=== PATIENT | female | born 1940 | race Caucasian/White ===

== ENCOUNTER 2018-05-29 17:35 | Inpatient (IN) ==
--- NOTE | 2018-05-29 18:03 | Emergency Department Note ---
Disposition Clinical Impression: Left leg weakness Disposition: Admitted As Inpatient Condition: Good Referrals: Heron Yepez MD [Primary Care Provider] - Forms: ED Satisfaction Letter Neuro HPI - General Chief Complaint: ED Neuro Symptoms/Deficit Stated Complaint: Left sided weakness Time Seen by Provider: 05/29/18 17:39 Source: EMS Mode of arrival: EMS Limitations: no limitations Nursing Notes Reviewed: Yes Vital Signs Reviewed: Yes - History of Present Illness HPI Narrative: 77-year-old female prior history of cerebellar hemorrhage, CAD with one stent who presents to the ER via EMS due to left lower extremity pain as well as weakness. Patient states Saturday before last that she fell out of bed. She does not have any recollection of exactly what happened. She states she noticed that she had bruising later and believe that is what happened. She lives at home alone. States during that time that she has had pain in her left leg that starts in her low back. She also reports during this time that she has had weakness that is worse than her usual. No numbness, tingling or paresthesias. No bladder incontinence. Reports her stroke symptoms were left- sided previously. She states today she came because her daughters had had enough. No other complaints. Onset of Symptoms Date: 05/20/18 Symptom Onset Unknown: No Location: left leg History of same: Yes Severity: moderate Quality: weakness Symptoms Improving: No Improves with: none Worsens with: none On Anticoagulants: No Treatments Prior to Arrival: none - Related Data Home Medications: Home Medications Medication Instructions Recorded Confirmed ALPRAZolam [Xanax 1 MG Tablet] 1 mg PO QPM PRN 05/29/18 05/29/18 Albuterol Sulfate [Ventolin Hfa] 1 puff IH Q4H PRN 05/29/18 05/29/18 Aspirin Enteric Coated [Aspirin EC] 81 mg PO QAM 05/29/18 05/29/18 Cholecalciferol (D-3) [Vitamin D] 2,000 unit PO QPM 05/29/18 05/29/18 Clopidogrel [Plavix] 75 mg PO QAM 05/29/18 05/29/18 Furosemide [Lasix] 40 mg PO QAM 05/29/18 05/29/18 Gabapentin [Neurontin] 300 mg PO QPM 05/29/18 05/29/18 Lisinopril [Zestril] 20 mg PO QPM 05/29/18 05/29/18 Metoprolol XL (24 HR) Succ [Toprol 75 mg PO QAM 05/29/18 05/29/18 XL] Rosuvastatin [Crestor] 40 mg PO QPM 05/29/18 05/29/18 Tramadol HCl [Ultram] 100 mg PO TID PRN 05/29/18 05/29/18 All systems ED: reviewed and negative except as stated. Cardiovascular: Denies: chest pain Respiratory: Denies: dyspnea Gastrointestinal: Denies: abdominal pain Musculoskeletal: Reports: neck pain Neurological: Reports: weakness. Denies: headache, numbness, paresthesias Past Medical History - Past Medical History Attestation: Yes The following information was validated with the patient. Source: patient Medical history: Reports: CVA, hypertension Psychiatric history: Reports: anxiety - Social History Smoking Status: Current every day smoker Alcohol use: Reports: none Drug use: Reports: none Physical Exam - General Limitations: no limitations General appearance: alert, in no apparent distress - Head Head exam: atraumatic, normocephalic - Eye Eye exam: Present: normal appearance - ENT ENT exam: normal exam - Neck Neck exam: Present: normal inspection, full ROM. Absent: tenderness - Chest Chest inspection: Present: normal inspection, symmetric chest wall rise - Respiratory Respiratory exam: Present: normal lung sounds bilaterally - Cardiovascular Cardiovascular exam: Present: regular rate, normal rhythm, normal heart sounds - Abdominal Exam Abdominal exam: Present: soft, Non-Tender. Absent: tenderness - Extremities Exam Extremities exam: Present: normal inspection, full ROM - Expanded Upper Extremity Exam Shoulder exam: Present: normal inspection, full ROM Arm exam: Present: normal inspection, full ROM Elbow exam: Present: normal inspection, full ROM Forearm/Wrist exam: Present: normal inspection, full ROM Hand exam: Present: normal inspection, full ROM Vascular exam: Normal: radial pulse - Expanded Lower Extremity Exam Hip/Pelvis exam: Present: normal inspection, full ROM Upper leg exam: Present: normal inspection, full ROM Knee exam: Present: normal inspection, full ROM Lower leg exam: Present: normal inspection, full ROM Ankle exam: Present: normal inspection, full ROM Foot/toe exam: Present: normal inspection, full ROM Neurovascular/Tendon exam: Absent: motor deficit, sensory deficit - Neurological Exam Neurological exam: Present: alert, oriented X3, CN II-XII intact - Expanded Neurological Exam Patient oriented to: Present: person, place, time Speech: Present: fluid speech Cranial nerves: EOM function (II, III, IV, ): Normal, facial sensation (V): Normal, spinal accessory function (XI): Normal, tongue deviation (XII): Normal Cerebellar function: finger to nose: Normal Motor strength - LUE: 5/5 Motor strength - RUE: 5/5 Motor strength - LLE: 3/5 Motor strength - RLE: 5/5 Sensory exam upper extremity: light touch: Normal Sensory exam lower extremity: light touch: Normal Coma Scale Eye Opening: Spontaneous Coma Scale Motor Response: Obeys Commands Coma Scale Verbal Response: Oriented Coma Scale Total: 15 - Skin Skin exam: Present: warm, dry Course Course Narrative: Patient seen and examined. Vital signs reviewed. She does have worsening weakness of her left lower extremity. Neurovascularly intact otherwise. Plan for CT of the head and cervical spine given her fall previously, EKG, chest x- ray, lumbar spine x-ray, labs. Likely admission for neuro workup. - Reevaluation(s) Reevaluation #1: Discussed results of imaging and lab work with the patient. Agreeable with being admitted. Vital Signs Temperature 98.3 F 05/29/18 17:38 Pulse Rate 74 05/29/18 17:38 Respiratory Rate 18 05/29/18 17:38 Blood Pressure 182/130 05/29/18 17:38 O2 Sat by Pulse Oximetry 98 05/29/18 17:38 Temperature 98.3 F 05/29/18 17:38 Pulse Rate 74 05/29/18 17:38 Respiratory Rate 18 05/29/18 17:38 Blood Pressure 182/130 05/29/18 17:38 O2 Sat by Pulse Oximetry 98 05/29/18 17:38 Oxygen Delivery Oxygen Delivery Room Air Neuro Symptoms/Deficit - MDM Narrative Medical decision making narrative: 77-year-old female with a possible fall roughly 9 days ago with weakness in her left leg from her baseline. Unable to ambulate at home given this weakness. CT head no acute abnormalities. X-ray of the lumbar spine shows degenerative changes with a grade 1 anterolisthesis. She has weakness worse than her baseline of the left leg. Plan to admit for worsening weakness, concern for CVA as well as for physical therapy rehabilitation. - Lab Data Lab results reviewed: Yes I reviewed the patient's lab results. Result diagrams: 05/29/18 18:07 05/29/18 18:07 Lab Results 05/29/18 05/29/18 05/29/18 Range/Units 18:07 18:07 18:07 WBC 9.5 (4.3-11.1) K/mcL RBC 4.81 (3.82-4.97) M/mcL Hgb 13.5 (11.5-15.4) g/dL Hct 41.2 (35.3-44.9) % MCV 85.7 (83.0-100.0) fL MCH 28.1 (28.0-33.3) pg MCHC 32.8 (31.6-35.5) g/dL RDW 13.7 (11.5-14.5) % Plt Count 394 (140-400) K/mcL MPV 10.6 (9.4-12.4) fL Immature Gran % 0.7 (0-4) % Seg Neutrophils % 56.3 % Lymphocytes % 33.2 % Monocytes % 7.3 % Eosinophils % 1.8 % Basophils % 0.7 % Neutrophils # 5.3 (1.6-8.9) K/mcL Lymphocytes # 3.2 (0.6-4.6) K/mcL Monocytes # 0.7 (0.0-1.3) K/mcL Eosinophils # 0.2 (0.0-0.6) K/mcL Basophils # 0.1 (0.0-0.2) K/mcL PT 12.0 (9.4-12.1) Seconds INR 1.1 APTT 31.9 (26.0-36.0) Seconds Sodium 138 (136-145) mEq/L Potassium 4.3 (3.5-5.1) mEq/L Chloride 103 (98-107) mEq/L Carbon Dioxide 28 (23-29) mEq/L BUN 18 (8-23) mg/dL Creatinine 1.16 (0.60-1.20) mg/dL Est GFR ( Amer) 55 L (> 60) Est GFR (Non-Af Amer) 45 L (> 60) BUN/Creatinine Ratio 16 (6-26) Glucose 107 H (70-105) mg/dL Calculated Osmolality 288 (280-300) Calcium 9.4 (8.6-10.3) mg/dL Troponin I < 0.03 (< 0.04) ng/mL - Radiology Data Radiology results reviewed: Yes I reviewed the patient's radiology results. Chest X-Ray 05/29/18 17:52 IMPRESSION: No acute cardiopulmonary disease. D/ / Ryan Husain MD / Ryan Husain MD Interpreting Provider: Ryan Husain MD Head CT 05/29/18 17:52 IMPRESSION: No acute intracranial abnormality. Stable chronic small vessel white matter ischemic changes and small bilateral lacunar infarcts within the basal ganglia. D/ / Phu Mccord MD / Phu Mccord MD Interpreting Provider: Phu Mccord MD Lumbar Spine X-Ray 05/29/18 17:52 IMPRESSION: Degenerative changes as above including a degenerative grade 1 anterolisthesis at L4-L5. No definite acute injury. D/ / Ryan Husain MD / Ryan Husain MD Interpreting Provider: Ryan Husain MD Cervical Spine CT 05/29/18 17:55 IMPRESSION: No acute abnormality of the cervical spine. Moderate multilevel degenerative disc disease with facet arthropathy. D/ / Phu Mccord MD / Phu Mccord MD Interpreting Provider: Phu Mccord MD - EKG Data EKG attestation: Yes I reviewed and interpreted this EKG. EKG results narrative: EKG demonstrates sinus rhythm rate 72 bpm. Normal axis. Normal intervals. Normal R-wave progression. Nonspecific ST-T wave changes lead 3. No gross ST elevations or depressions. No acute ischemic findings. No significant changes from prior EKG dated 03/14/13. NIH Stroke Scale - Level of Consciousness LOC: Alert - LOC Questions LOC Questions: Answers both correctly - LOC Commands LOC Commands: Performs both correctly - Best Gaze Best Gaze: Normal - Visual Visual: No visual loss - Facial Palsy Facial Palsy: Normal - Motor Arms Motor Arm-Left: No drift for 10 seconds Motor Arm-Right: No drift for 10 seconds - Motor Legs Motor Leg-Left: Some effort against gravity, limb drifts to bed Motor Leg-Right: No drift for 5 seconds - Limb Ataxia Limb Ataxia: Absent of affected limb too weak to perform exam - Sensory Sensory: Normal - Best Language Best Language: No aphasia - Dysarthria Dysarthria: Normal - Extinction and Inattention Extinction and Inattention: Normal - NIHSS Total Score NIHSS Total Score: 2 TPA Checklist - LKW: 3-4.5 hrs Add. Warnings/Precautions Patient/family understanding: The patient/family members have been counseled and understood the risk, benefit , and alternatives of treatment. S.B.Mini - Sada Situation: Demographics, MOA Background: Presenting Complaint, Relevant PMH, Meds, & Allergies Assessment: Course and respsone to treatment, Exam Concerns, Patient/Family Expectation, Pertinant Lab Results Recommendation: Barrier(s) to disposition, Recommendation based on pending studies, treatments, or consults S.B.A.Kerrie Report Given to: Dr. Celio Tomlin Repor Time: 20:00 Attestation Statement - Attestation Attestation: This documentation is done with the assistance of Dragon dictation. Despite efforts made to ensure accuracy, there may be inaccuracies in hearing instrument specialist or spelling and typographical errors. I examined this patient and my medical decision-making was reviewed with the Resident Physician. I agree with the documented findings, disposition and treatment plan as described except to the extent set forth below. Patient seen and evaluated by Dr. Paredes and myself, I agree with his evaluation and management plan, supervise care the patient's stay. Patient presents with left lower extremity pain and weakness. She had a previous stroke in the past. She is concerned that may be up about 5-7 days ago she fall out of bed she is uncertain if she is head. She is a fairly poor historian. When image her head check labs urinalysis and reassess. She most likely will need admission. Concern for subacute stroke. She does not meet acute stroke criteria.
[2018-05-29 18:19] LABS: Basophils # 0.1 K/mcL (0.0-0.2); Basophils % 0.7 %; Eosinophils # 0.2 K/mcL (0.0-0.6); Eosinophils % 1.8 %; Hematocrit 41.2 % (35.3-44.9); Hemoglobin 13.5 g/dL (11.5-15.4); Immature Granulocytes % 0.7 % (0-4); Lymphocytes # 3.2 K/mcL (0.6-4.6); Lymphocytes % 33.2 %; Mean Corpuscular HGB Conc 32.8 g/dL (31.6-35.5); Mean Corpuscular Hemoglobin 28.1 pg (28.0-33.3); Mean Corpuscular Volume 85.7 fL (83.0-100.0); Mean Platelet Volume 10.6 fL (9.4-12.4); Monocytes # 0.7 K/mcL (0.0-1.3); Monocytes % 7.3 %; Neutrophils # 5.3 K/mcL (1.6-8.9); Platelet Count 394 K/mcL (140-400); Red Blood Count 4.81 M/mcL (3.82-4.97); Red Cell Distribution Width 13.7 % (11.5-14.5); Segmented Neutrophils % 56.3 %
[2018-05-29 18:28] LABS: INR 1.1
[2018-05-29 18:31] LABS: Activated Partial Thrombo Time 31.9 Seconds (26.0-36.0)
[2018-05-29 18:46] LABS: Troponin I < 0.03 ng/mL (< 0.04)
[2018-05-29 18:47] LABS: BUN/Creatinine Ratio 16 (6-26); Blood Urea Nitrogen 18 mg/dL (8-23); Calcium 9.4 mg/dL (8.6-10.3); Carbon Dioxide 28 mEq/L (23-29); Chloride 103 mEq/L (98-107); Glucose 107 mg/dL (70-105); Osmolality,Calculated 288 (280-300); Potassium 4.3 mEq/L (3.5-5.1); Sodium 138 mEq/L (136-145); eGFR For African Americans 55 (> 60); eGFR For Non-African Americans 45 (> 60)
--- NOTE | 2018-05-29 21:52 | Internal Med History&Physical ---
<Lor Cortez - Last Filed: 05/29/18 23:32> Date of Encounter: 05/29/18 Time of Encounter: 21:45 Internal Medicine - H&P: HPI Chief complaint: Low back pain Admitted From: Emergency Dept Plans for Post Hospital Care: Home History of present illness: Ms. Steven is a 77 year old female with past medical history of cerebellar stroke, CAD, hypertension, COPD presented to [facility] ED complaining of low back pain has been worsening since 9 days ago when she slid off her bed. She reported that she does not remember sliding off her bed but woke up on the floor and then does not remember how she got back into bed. She did not go to the ED at that time, however 3 days ago her low back pain started increasing in intensity to the point that she is having difficulty walking due to the pain and was having to sit on a chair to scoot around. The pain is sharp and located in her sacral region and radiates to the front of her vagina and down her legs bilaterally. She denied paresthesias, urinary incontinence/ retention, bowel incontinence, fever, chills, shortness of breath, chest pain, headache, change in vision, dysuria, confusion, difficulty in speaking, increase in weakness. She believes that she slid off the bed due to taking her [id number] sleeping pill too early and that she was sleepy when she slid off, because this has happened to her before. Additionally, she has residual left-sided weakness since her cerebellar stroke in 1992. She follows with Dr. Larsen and had a carotid stent placed on right side. She also had carotid ultrasound February 2018 that demonstrated left proximal ICA severe 60 to 79% stenosis with recommendations of medical management and follow-up in 12 months. She is a current smoker. She is a full code. In the ED, head CT stable. cervical spine CT -no abnormalities, degenerative disc disease. lumbar spine x-ray demonstrated degenerative grade 1 anteriolithesis L4-L5. Chest x-ray unremarkable. Past Med Surg Social Fam HX - Past Medical History Attestation: Yes The following information was validated with the patient. Source: patient Medical history: coronary artery disease, CVA, hypertension Additional medical history: Brain Bleed Psychiatric history: anxiety - Past Surgical History Additional surgical history: cardiac stent. Neck Surgery. Bilateral Carpal Tunnel - Social History Smoking Status: Current every day smoker Alcohol use: none Drug use: none Internal Medicine - H&P: Meds ALPRAZolam [Xanax 1 MG Tablet] 1 mg PO QPM PRN 05/29/18 [History] Albuterol Sulfate [Ventolin Hfa] 1 puff IH Q4H PRN 05/29/18 [History] Aspirin Enteric Coated [Aspirin EC] 81 mg PO QAM 05/29/18 [History] Cholecalciferol (D-3) [Vitamin D] 2,000 unit PO QPM 05/29/18 [History] Clopidogrel [Plavix] 75 mg PO QAM 05/29/18 [History] Furosemide [Lasix] 40 mg PO QAM 05/29/18 [History] Gabapentin [Neurontin] 300 mg PO QPM 05/29/18 [History] Lisinopril [Zestril] 20 mg PO QPM 05/29/18 [History] Metoprolol XL (24 HR) Succ [Toprol XL] 75 mg PO QAM 05/29/18 [History] Rosuvastatin [Crestor] 40 mg PO QPM 05/29/18 [History] Tramadol HCl [Ultram] 100 mg PO TID PRN 05/29/18 [History] 3 Allergy/AdvReac Type Severity Reaction Status Date / Time No Known Allergies Allergy Verified 05/29/18 20:57 All Systems PM: A 10-system review of systems was performed and is negative for pertinent findings except as documented above in the HPI. - Constitutional Constitutional: falls, weakness (Left-sided residual), no chills, no fever(s) - EENT Eyes: no change in vision - Cardiovascular Cardiovascular ROS IM: no chest pain, no diaphoresis, no palpitations - Respiratory Respiratory: no cough, no dyspnea, no wheezing - Gastrointestinal Gastrointestinal: no abdominal pain, no nausea, no vomiting - Genitourinary Genitourinary: no dysuria - Musculoskeletal Musculoskeletal ROS IM: back pain, no numbness, no tingling - Integumentary Integumentary IM: other (Bruise on right hip) - Neurological Neurological ROS: radicular pain (Bilateral lower extremities), weakness ( Residual left-sided weakness), no abnormal speech, no confusion, no dizziness, no frequent falls, no headache(s), no loss of vision, no numbness, no paresthesias - Psychiatric Psychiatric: no confusion - Hematologic/Lymphatic Hematologic/Lymphatic: no easy bleeding - Constitutional Vitals: Temp Pulse Resp BP Pulse Ox 98.2 F 70 19 173/70 95 05/29/18 21:36 05/29/18 21:36 05/29/18 21:36 05/29/18 21:36 05/29/18 21:36 General appearance: Present: A&O X 3, pleasant, no acute distress - Head Head exam: Present: atraumatic, normal inspection - Eye Eye exam: Present: normal appearance - Respiratory Respiratory exam: Present: CTAB. Absent: rales, wheezes - Cardiovascular Cardiovascular exam: Present: RRR. Absent: systolic murmur - GI/Abdominal GI/Abdominal exam: Present: normal bowel sounds, soft. Absent: distended, tenderness - Extremities Exam Extremities exam: Present: radial pulses palpable and symmetrical. Absent: pedal edema, tenderness - Back Exam Back exam: Present: normal inspection. Absent: paraspinal tenderness, rash noted, tenderness, vertebral tenderness - Neurological Exam Neurological exam: Present: alert, oriented X3. Absent: strengths equal and symetr throughout (Left-sided weakness residual), facial droop, speech deficit - Psychiatric Psychiatric exam: Present: normal affect, normal mood - Skin Skin exam: Present: abrasion (Bruise on right hip), dry, intact Internal Med - H&P Results - Labs CBC & Chem 7: 05/29/18 18:07 05/29/18 18:07 - Assessment and plan (1) Fall Current Visit: Yes Status: Acute Assessment and plan: Concern for CVA vs medication use-sleeping pill. Most likely medication related due to patient not having new symptoms concerning of stroke and imaging thus far is negative. -Patient reported sliding off her bed and hitting her head 9 days ago and did not remember how she fell off the bed or how she got back into bed. History of cerebellar stroke with residual left-sided weakness. She also reported she takes an [id number] sleeping pill at bedtime and that she may have been sleepy and slid off the bed since this is happened her before when she has taken her sleeping pill much earlier prior to going to bed. - Patient of Dr. Larsen and had a carotid stent placed on right side. She also had carotid ultrasound February 2018 that demonstrated left proximal ICA severe 60 to 79% stenosis with recommendations of medical management and follow-up in 12 months. -head CT stable -cervical spine CT -no abnormalities, degenerative disc disease. -lumbar spine x-ray demonstrated degenerative grade 1 anteriolithesis L4-L5. -Chest x-ray unremarkable. Plan -order MRI brain -echocardiogram ordered -NIH scoring per stroke protocol -PT/OT ordered -fall precautions Qualifiers: Qualified Code(s): W19.XXXA - Unspecified fall, initial encounter (2) Low back pain radiating to both legs Current Visit: Yes Status: Acute Assessment and plan: Most likely sciatica. Differential includes herniated disc, spinal stenosis, tumor, abscess. -Low back pain with pain radiating down both legs since sliding off bed 9 days ago. The past 3 days pain has worsened and intensity to the point that she has to sit and scoot on a chair to move around. -lumbar spine x-ray demonstrated degenerative grade 1 anteriolithesis L4-L5. -MRI lumbar spine ordered -lidocaine patch ordered -patient's home dose of tramadol ordered (3) History of CVA (cerebrovascular accident) Current Visit: Yes Status: Acute Assessment and plan: History of cerebellar CVA with residual left-sided weakness. Patient currently taking Crestor, Plavix, aspirin. -Continue home medications (4) Hypertension Current Visit: Yes Status: Acute Assessment and plan: History of hypertension taking lisinopril and metoprolol -continue home medications Qualifiers: Hypertension type: essential hypertension Qualified Code(s): I10 - Essential (primary) hypertension (5) COPD (chronic obstructive pulmonary disease) Current Visit: Yes Status: Acute Assessment and plan: Reported history of COPD taking albuterol inhaler as needed. -Continue home albuterol Qualifiers: COPD type: unspecified COPD Qualified Code(s): J44.9 - Chronic obstructive pulmonary disease, unspecified (6) Tobacco abuse counseling Current Visit: Yes Status: Acute Assessment and plan: She is a current smoker and was adamant that she was not interested in quitting smoking. (7) DVT prophylaxis Current Visit: Yes Status: Acute Assessment and plan: SCD (8) CAD (coronary artery disease) Current Visit: Yes Status: Acute Assessment and plan: History of CAD with one stent. Taking Crestor, Plavix, aspirin -continue home medications Qualifiers: Coronary Disease-Associated Artery/Lesion type: unspecified vessel or lesion type Qualified Code(s): I25.10 - Atherosclerotic heart disease of [place] coronary artery without angina pectoris - Time Spent With Patient Total time spent is greater than 50% in coordination of care (as documented) at patient's floor/unit and/or counseling patient: <Car Pickens - Last Filed: 05/30/18 00:45> Date of Encounter: 05/30/18 Internal Medicine - H&P: HPI History of present illness: Ms. Steven is a 77 year old female All Systems PM: A 10-system review of systems was performed and is negative for pertinent findings except as documented above in the HPI. - Constitutional Vitals: Temp Pulse Resp BP Pulse Ox 98.2 F 70 19 173/70 95 05/30/18 00:21 05/30/18 00:21 05/30/18 00:21 05/30/18 00:21 05/29/18 21:36 Internal Med - H&P Results - Labs CBC & Chem 7: 05/29/18 18:07 05/29/18 18:07 - Attending Attestation I have seen and examined this patient independently. I have discussed with resident physician Dr. Cortez regarding the management plan. Agree with the documentation. - Assessment and plan (1) Low back pain radiating to both legs Current Visit: Yes Status: Acute (2) History of CVA (cerebrovascular accident) Current Visit: Yes Status: Acute (3) Hypertension Current Visit: Yes Status: Acute Qualifiers: Hypertension type: essential hypertension Qualified Code(s): I10 - Essential (primary) hypertension (4) COPD (chronic obstructive pulmonary disease) Current Visit: Yes Status: Acute Qualifiers: COPD type: unspecified COPD Qualified Code(s): J44.9 - Chronic obstructive pulmonary disease, unspecified (5) DVT prophylaxis Current Visit: Yes Status: Acute (6) Fall Current Visit: Yes Status: Acute Qualifiers: Qualified Code(s): W19.XXXA - Unspecified fall, initial encounter (7) Tobacco abuse counseling Current Visit: Yes Status: Acute (8) CAD (coronary artery disease) Current Visit: Yes Status: Acute Qualifiers: Coronary Disease-Associated Artery/Lesion type: unspecified vessel or lesion type Qualified Code(s): I25.10 - Atherosclerotic heart disease of [place] coronary artery without angina pectoris - Time Spent With Patient Total time spent is greater than 50% in coordination of care (as documented) at patient's floor/unit and/or counseling patient:
[2018-05-29] MEDS ORDERED: Naloxone 0.4 MG/ML INJ IVP PRN (23:30)
[2018-05-29] MEDS: Lisinopril 20 MG TABLET PO SCH (23:55)
[2018-05-29] MEDS: traMADol 50 MG TABLET PO PRN (23:56)
[2018-05-30] MEDS ORDERED: Melatonin 3 MG TABLET PO ONE (00:06)
[2018-05-30] MEDS: ALPRAZolam 1 MG TABLET PO PRN ×2 (00:21→17:25)
[2018-05-30 05:12] LABS: Basophils # 0.1 K/mcL (0.0-0.2); Basophils % 0.6 %; Eosinophils # 0.2 K/mcL (0.0-0.6); Eosinophils % 1.7 %; Hemoglobin 11.9 g/dL (11.5-15.4); Immature Granulocytes % 0.5 % (0-4); Lymphocytes # 3.3 K/mcL (0.6-4.6); Lymphocytes % 33.3 %; Mean Corpuscular HGB Conc 32.2 g/dL (31.6-35.5); Mean Corpuscular Hemoglobin 27.3 pg (28.0-33.3); Mean Corpuscular Volume 84.9 fL (83.0-100.0); Mean Platelet Volume 10.8 fL (9.4-12.4); Monocytes # 0.9 K/mcL (0.0-1.3); Monocytes % 8.6 %; Neutrophils # 5.5 K/mcL (1.6-8.9); Platelet Count 367 K/mcL (140-400); Red Blood Count 4.36 M/mcL (3.82-4.97); Segmented Neutrophils % 55.3 %
[2018-05-30 05:31] LABS: BUN/Creatinine Ratio 17 (6-26); Blood Urea Nitrogen 18 mg/dL (8-23); Calcium 9.1 mg/dL (8.6-10.3); Carbon Dioxide 26 mEq/L (23-29); Chloride 105 mEq/L (98-107); Glucose 81 mg/dL (70-105); Osmolality,Calculated 291 (280-300); Potassium 3.8 mEq/L (3.5-5.1); Sodium 140 mEq/L (136-145); eGFR For African Americans > 60 (> 60); eGFR For Non-African Americans 51 (> 60)
[2018-05-30] MEDS: Metoprolol XL (24 HR) Succ 25 MG TAB.ER.24H PO SCH (08:16)
[2018-05-30] MEDS: traMADol 50 MG TABLET PO PRN ×2 (08:16→20:39)
[2018-05-30] MEDS: Aspirin Enteric Coated 81 MG Tablet PO SCH (08:16)
[2018-05-30] MEDS: Furosemide 40 MG TABLET PO SCH (12:35)
--- NOTE | 2018-05-30 17:01 | Internal Med Progress Note ---
Date of Encounter: 05/30/18 Time of Encounter: 16:56 - Assessment and plan (1) Low back pain radiating to both legs Current Visit: Yes Status: Acute Assessment and plan: -Low back pain with pain radiating down both legs since sliding off bed 9 days ago. The past 3 days pain has worsened and intensity to the point that she has to sit and scoot on a chair to move around. -lumbar spine x-ray demonstrated degenerative grade 1 anteriolithesis L4-L5. MRI spine IMPRESSION: 1. Severe spinal canal stenosis at L4-L5. Mild spinal canal stenosis at L3-L4. 2. Degenerative changes contribute to multilevel neural foraminal narrowing as above. 3. Grade 1 anterolisthesis at L4-L5. 4. Bone marrow edema pattern is seen involving is the L4 and L5 spinous processes as well as the left L4-L5 facet joint. This may be degenerative in nature. - -lidocaine patch ordered -patient's home dose of tramadol ordered -Consulted Dr. Brooks ortho spine (2) History of CVA (cerebrovascular accident) Current Visit: Yes Status: Acute Assessment and plan: History of cerebellar CVA with residual left-sided weakness. appears to be equal strenght at this time Patient currently taking Crestor, Plavix, aspirin. -Continue home medications (3) Hypertension Current Visit: Yes Status: Acute Assessment and plan: History of hypertension taking lisinopril and metoprolol -continue home medications Qualifiers: Hypertension type: essential hypertension Qualified Code(s): I10 - Essential (primary) hypertension (4) COPD (chronic obstructive pulmonary disease) Current Visit: Yes Status: Acute Assessment and plan: Reported history of COPD taking albuterol inhaler as needed. -Continue home albuterol Oxygen as needed Qualifiers: COPD type: unspecified COPD Qualified Code(s): J44.9 - Chronic obstructive pulmonary disease, unspecified (5) DVT prophylaxis Current Visit: Yes Status: Acute Assessment and plan: SCD (6) Fall Current Visit: Yes Status: Acute Assessment and plan: Concern for CVA vs medication use-sleeping pill. Most likely medication related due to patient not having new symptoms concerning of stroke and imaging thus far is negative. -Patient reported sliding off her bed and hitting her head 9 days ago and did not remember how she fell off the bed or how she got back into bed. History of cerebellar stroke with residual left-sided weakness. She also reported she takes an pkjf-sak-jmkwjvy sleeping pill at bedtime and that she may have been sleepy and slid off the bed since this is happened her before when she has taken her sleeping pill much earlier prior to going to bed. - Patient of Dr. Larsen and had a carotid stent placed on right side. She also had carotid ultrasound February 2018 that demonstrated left proximal ICA severe 60 to 79% stenosis with recommendations of medical management and follow-up in 12 months. -head CT stable -cervical spine CT -no abnormalities, degenerative disc disease. -lumbar spine x-ray demonstrated degenerative grade 1 anteriolithesis L4-L5. -Chest x-ray unremarkable. MRI IMPRESSION: 1. Severe spinal canal stenosis at L4-L5. Mild spinal canal stenosis at L3-L4. 2. Degenerative changes contribute to multilevel neural foraminal narrowing as above. 3. Grade 1 anterolisthesis at L4-L5. 4. Bone marrow edema pattern is seen involving is the L4 and L5 spinous processes as well as the left L4-L5 facet joint. This may be degenerative in nature. echo Impressions: LVEF 60-65%. Normal LV chamber size, wall thickness and function. Mild left ventricular diastolic dysfunction. Normal right ventricular structure and function. Mild pulmonary hypertension. No significant valvular dysfunction. -NIH scoring per stroke protocol -PT/OT ordered-awaiting recommendations -fall precautions Qualifiers: Encounter type: initial encounter Qualified Code(s): W19.XXXA - Unspecified fall, initial encounter (7) Tobacco abuse counseling Current Visit: Yes Status: Acute Assessment and plan: She is a current smoker and was adamant that she was not interested in quitting smoking. (8) CAD (coronary artery disease) Current Visit: Yes Status: Acute Assessment and plan: History of CAD with one stent. Taking Crestor, Plavix, aspirin -continue home medications Nitroglycerin for chest pain Qualifiers: Coronary Disease-Associated Artery/Lesion type: unspecified vessel or lesion type [place] vs. transplanted heart: [place] heart Associated angina: without angina Qualified Code(s): I25.10 - Atherosclerotic heart disease of [place] coronary artery without angina pectoris - Time Spent With Patient Total time spent is greater than 50% in coordination of care (as documented) at patient's floor/unit and/or counseling patient: - Subjective Interval history: Patient seen and examined at bedside. Patient is sitting up in a chair complaints of lower back pain on palpation. Had patient stand up was and able to completely straighten her back pain of lower back pain. Denies any loss of bowel or bladder no numbness or tingling. Neurologically she is intact. I did speak with Dr. Brooks he will see patient I did review treatment plan with the patient and her daughter who had at bedside she verbalized understanding. - Constitutional Vitals: Temp Pulse Resp BP Pulse Ox 97.8 F 67 18 158/78 93 05/30/18 12:00 05/30/18 12:00 05/30/18 12:00 05/30/18 12:05/30/18 12:00 General appearance: Present: A&O X 3, pleasant, no acute distress - Head Head exam: Present: atraumatic, normocephalic - Eye Eye exam: Present: PERRL, conjuntiva pink, sclera anicteric Pupils: Present: PERRL - Neck Neck exam general surgery: Present: supple, trachea midline. Absent: lymphadenopathy - Respiratory Respiratory exam: Present: CTAB. Absent: accessory muscle use, rales, rhonchi, wheezes - Cardiovascular Cardiovascular exam: Present: RRR, +S1, +S2. Absent: diastolic murmur, gallop, rubs, systolic murmur - GI/Abdominal GI/Abdominal exam: Present: normal bowel sounds, soft, no peritoneal signs. Absent: distended, tenderness - Extremities Exam Extremities exam: Present: warm, radial pulses palpable and symmetrical. Absent : calf tenderness, cyanotic, pedal edema - Back Exam Back exam: Present: vertebral tenderness - Neurological Exam Neurological exam: Present: CN II-XII intact, oriented X3, no focal deficits. Absent: pronater drift, facial droop, speech deficit - Skin Skin exam: Present: dry, intact Internal Medicine: Result - Labs CBC & Chem 7: 05/30/18 04:02 05/30/18 04:02 Labs: Short CBC 05/30/18 Range/Units 04:02 WBC 9.9 (4.3-11.1) K/mcL Hgb 11.9 D (11.5-15.4) g/dL Hct 37.0 (35.3-44.9) % Plt Count 367 (140-400) K/mcL Neutrophils # 5.5 (1.6-8.9) K/mcL BMP 05/30/18 04:02 Sodium 140 Potassium 3.8 Chloride 105 Carbon Dioxide 26 BUN 18 Creatinine 1.04 Glucose 81 Calcium 9.1 - ABG Interpretation ABG results: PT/INR, D-dimer PT 12.0 Seconds (9.4-12.1) 05/29/18 18:07 - Impressions Impressions Echocardiogram 05/30/18 07:00 Impressions: LVEF 60-65%. Normal LV chamber size, wall thickness and function. Mild left ventricular diastolic dysfunction. Normal right ventricular structure and function. Mild pulmonary hypertension. No significant valvular dysfunction. Left Ventricular Wall Motion: Rest Echo Findings All wall segments showed normal motion. Findings: Study Quality * Technically adequate exam. ECG Findings * Normal sinus rhythm. Left Ventricle * LVEF 60-65%. * Normal LV chamber size, wall thickness and function. * Mild left ventricular diastolic dysfunction. Right Ventricle * Normal right ventricular structure and function. Left Atrium * Normal left atrial size. Right Atrium * Normal right atrial size. Aortic Valve * Aortic valve not well visualized. * No aortic regurgitation. * No aortic stenosis. Mitral Valve * Normal mitral valve structure and function. * No mitral regurgitation. * No mitral stenosis. Tricuspid Valve * Normal tricuspid valve structure and function. * Trace tricuspid regurgitation. * Mild pulmonary hypertension. Pulmonic Valve * Pulmonic valve not well visualized. * No pulmonic regurgitation. Aorta * Normally sized aortic root. Pericardium * The pericardium appears normal. IVC * Normal IVC dimensions and inspiratory collapse. Pulmonary Artery * Normal visualized portions of the main pulmonary artery. Brain MRI 05/30/18 21:52 IMPRESSION: 1. No acute intracranial abnormality. No acute infarct. 2. Minimal global parenchymal volume loss with [id number]-[id number] chronic microvascular ischemic changes. D/ / Asaf Boone MD / Asaf Boone MD Interpreting Provider: Asaf Boone MD Lumbar Spine MRI 05/30/18 21:59 IMPRESSION: 1. Severe spinal canal stenosis at L4-L5. Mild spinal canal stenosis at L3-L4. 2. Degenerative changes contribute to multilevel neural foraminal narrowing as above. 3. Grade 1 anterolisthesis at L4-L5. 4. Bone marrow edema pattern is seen involving is the L4 and L5 spinous processes as well as the left L4-L5 facet joint. This may be degenerative in nature. D/ / Asaf Boone MD / Asaf Boone MD Interpreting Provider: Asaf Boone MD Consult Discharge Plan - Plan Referrals: Heron Yepez MD [Primary Care Provider] -
[2018-05-30] MEDS: Lisinopril 20 MG TABLET PO SCH (17:25)
--- NOTE | 2018-05-30 17:34 | Electrocardiograph Report ---
[place] [id number] Test Date: 2018-05-29 Pat Name: Avis Steven Department: 103 Room: 3B Gender: F Manager [employer]: : 1940 Requested By: Car Pickens Order Number: [id number] Reading MD: Nikhil Bradley Measurements Intervals [place] Rate: 72 P: 66 MD: 149 QRS: -6 QRSD: 101 T: 45 QT: 394 QTc: 418 Interpretive Statements SINUS RHYTHM Electronically Signed On 05-30-2018 17:33:05 EDT by Nikhil Bradley
[2018-05-30] MEDS ORDERED: Lisinopril 20 MG TABLET PO SCH (18:00)
[2018-05-30] MEDS ORDERED: Simethicone 80 MG TAB.CHEW PO PRN (18:12)
--- NOTE | 2018-05-30 20:29 | Spinal Consult Note ---
Date of Encounter: 05/30/18 Time of Encounter: 20:26 Assessment and Plan (1) Lumbar stenosis with neurogenic claudication Current Visit: Yes Status: Chronic (2) Left foot drop Current Visit: Yes Status: Acute On exam she is sitting on the side of the bed in mild distress secondary to back pain. Afebrile vital signs stable. She has limitation with forward flexion and extension of the lumbar spine. Extension causes pain into the buttocks and legs. Her hips move symmetrically. There is no clonus. She has significant weakness in dorsiflexion of the left foot which is 2 on a motor scale consistent with left foot drop. Her left foot/ankle is inverted. She has weakness in the EHL and left quad is well. Pulses are intact. She is otherwise neurovascularly intact with regard to her bilateral lower extremities. MRI of the lumbar spine reveals a grade 1 spondylolisthesis at L4-L5. She has associated severe stenosis at this level. There are multilevel degenerative changes in the lumbar spine. Impression: 1) spondylolisthesis L4-L5 2) severe lumbar stenosis 3) left foot drop 4) focal motor deficit Plan: Due to her concerning weakness and risk for further or permanent neurologic injury I find it reasonable to consider surgery in the form of a posterior lumbar interbody fusion L4-L5. The patient will require medical optimization prior to surgery. Risks benefits possible complications and alternatives were discussed and the patient would like to proceed. (3) Focal motor deficit Current Visit: Yes Status: Acute History of Present Illness Chief complaint: Falls, weakness in legs, pain in back radiating to legs HPI: Ms. Steven is a 77 year old female With multiple medical comorbidities including CVA and previous cardiac stenting who has a proximally 10 day history of worsening back pain radiating into the lower extremities associated with weakness in the left lower extremity. She has had gradually worsening symptoms over the course of the year but they progressed in the past 2 weeks such that she had several falls and needed the use of a walker to ambulate. She was a previously inactive person but now states just to walk in the past several weeks she has has to crouch over, take small steps, and had significant impairment in mobility. She denies any fevers chills or bowel bladder symptomatology. Past Med Surg Social Fam HX - Past Medical History Medical history: coronary artery disease, CVA, hypertension Additional medical history: Brain Bleed Psychiatric history: anxiety - Past Surgical History Additional surgical history: cardiac stent. Neck Surgery. Bilateral Carpal Tunnel - Social History Smoking Status: Current every day smoker Packs per day: 1 Smokeless Tobacco Status: No Alcohol use: none Drug use: none Medications and Allergies ALPRAZolam [Xanax 1 MG Tablet] 1 mg PO QPM PRN 05/29/18 [History] Albuterol Sulfate [Ventolin Hfa] 1 puff IH Q4H PRN 05/29/18 [History] Aspirin Enteric Coated [Aspirin EC] 81 mg PO QAM 05/29/18 [History] Cholecalciferol (D-3) [Vitamin D] 2,000 unit PO QPM 05/29/18 [History] Clopidogrel [Plavix] 75 mg PO QAM 05/29/18 [History] Furosemide [Lasix] 40 mg PO QAM 05/29/18 [History] Gabapentin [Neurontin] 300 mg PO QPM 05/29/18 [History] Lisinopril [Zestril] 20 mg PO QPM 05/29/18 [History] Metoprolol XL (24 HR) Succ [Toprol XL] 75 mg PO QAM 05/29/18 [History] Rosuvastatin [Crestor] 40 mg PO QPM 05/29/18 [History] Tramadol HCl [Ultram] 100 mg PO TID PRN 05/29/18 [History] 3 Allergy/AdvReac Type Severity Reaction Status Date / Time No Known Allergies Allergy Verified 05/29/18 20:57 Results - Labs Result Diagrams: 05/30/18 04:02 05/30/18 04:02 Labs: Abnormal lab results MCH 27.3 pg (28.0-33.3) L 05/30/18 04:02 Est GFR (Non-Af Amer) 51 (> 60) L 05/30/18 04:02 H & H 05/30/18 Range/Units 04:02 Hgb 11.9 D (11.5-15.4) g/dL Hct 37.0 (35.3-44.9) % All other labs normal. Consult Discharge Plan - Plan Referrals: Heron Yepez MD [Primary Care Provider] -
[2018-05-31 06:05] LABS: Basophils # 0.1 K/mcL (0.0-0.2); Basophils % 0.9 %; Eosinophils # 0.2 K/mcL (0.0-0.6); Eosinophils % 2.1 %; Hematocrit 40.1 % (35.3-44.9); Hemoglobin 13.1 g/dL (11.5-15.4); Immature Granulocytes % 0.6 % (0-4); Lymphocytes # 3.4 K/mcL (0.6-4.6); Lymphocytes % 34.6 %; Mean Corpuscular HGB Conc 32.7 g/dL (31.6-35.5); Mean Corpuscular Hemoglobin 27.5 pg (28.0-33.3); Mean Corpuscular Volume 84.1 fL (83.0-100.0); Mean Platelet Volume 10.4 fL (9.4-12.4); Monocytes # 0.8 K/mcL (0.0-1.3); Monocytes % 8.6 %; Neutrophils # 5.2 K/mcL (1.6-8.9); Platelet Count 392 K/mcL (140-400); Red Blood Count 4.77 M/mcL (3.82-4.97); Red Cell Distribution Width 13.9 % (11.5-14.5); Segmented Neutrophils % 53.2 %
[2018-05-31 06:23] LABS: BUN/Creatinine Ratio 19 (6-26); Blood Urea Nitrogen 19 mg/dL (8-23); Calcium 9.2 mg/dL (8.6-10.3); Carbon Dioxide 26 mEq/L (23-29); Chloride 104 mEq/L (98-107); Glucose 96 mg/dL (70-105); Osmolality,Calculated 292 (280-300); Potassium 3.5 mEq/L (3.5-5.1); Sodium 140 mEq/L (136-145); eGFR For African Americans > 60 (> 60); eGFR For Non-African Americans 53 (> 60)
[2018-05-31] MEDS: Metoprolol XL (24 HR) Succ 25 MG TAB.ER.24H PO SCH (08:49)
[2018-05-31] MEDS: Aspirin Enteric Coated 81 MG Tablet PO SCH (08:49)
[2018-05-31] MEDS: Furosemide 40 MG TABLET PO SCH (10:54)
[2018-05-31] MEDS ORDERED: Ondansetron 4 MG/2 ML VIAL IVP PRN (11:18)
[2018-05-31] MEDS: Lisinopril 20 MG TABLET PO SCH (17:07)
[2018-05-31] MEDS: Gabapentin 300 MG CAPSULE PO SCH (17:08)
--- NOTE | 2018-05-31 18:18 | Internal Med Progress Note ---
Date of Encounter: 05/31/18 Time of Encounter: 18:14 - Assessment and plan (1) Low back pain radiating to both legs Current Visit: Yes Status: Acute Assessment and plan: -Low back pain with pain radiating down both legs since sliding off bed 9 days ago. The past 3 days pain has worsened and intensity to the point that she has to sit and scoot on a chair to move around. -lumbar spine x-ray demonstrated degenerative grade 1 anteriolithesis L4-L5. -Dr. Brooks has been consulted-considering surgery informant posterior lumbar interbody fusion L4-L5 we will have cardiology evaluate for surgical clearance since patient does have past cardiac history of [place] and stent placement, also history of CVA MRI spine IMPRESSION: 1. Severe spinal canal stenosis at L4-L5. Mild spinal canal stenosis at L3-L4. 2. Degenerative changes contribute to multilevel neural foraminal narrowing as above. 3. Grade 1 anterolisthesis at L4-L5. 4. Bone marrow edema pattern is seen involving is the L4 and L5 spinous processes as well as the left L4-L5 facet joint. This may be degenerative in nature. - -lidocaine patch ordered -patient's home dose of tramadol ordered -Consulted Dr. Brooks ortho spine (2) History of CVA (cerebrovascular accident) Current Visit: Yes Status: Acute Assessment and plan: History of cerebellar CVA with residual left-sided weakness. appears to be equal strenght at this time Patient currently taking Crestor, Plavix, aspirin. -Continue home medications (3) Hypertension Current Visit: Yes Status: Acute Assessment and plan: History of hypertension taking lisinopril and metoprolol -continue home medications Qualifiers: Hypertension type: essential hypertension Qualified Code(s): I10 - Essential (primary) hypertension (4) COPD (chronic obstructive pulmonary disease) Current Visit: Yes Status: Acute Assessment and plan: Reported history of COPD taking albuterol inhaler as needed.-Stable at this time -Continue home albuterol Oxygen as needed Qualifiers: COPD type: unspecified COPD Qualified Code(s): J44.9 - Chronic obstructive pulmonary disease, unspecified (5) Fall Current Visit: Yes Status: Acute Assessment and plan: Concern for CVA vs medication use-sleeping pill. Most likely medication related due to patient not having new symptoms concerning of stroke and imaging thus far is negative. -Patient reported sliding off her bed and hitting her head 9 days ago and did not remember how she fell off the bed or how she got back into bed. History of cerebellar stroke with residual left-sided weakness. She also reported she takes an espe-oad-mcjnmhz sleeping pill at bedtime and that she may have been sleepy and slid off the bed since this is happened her before when she has taken her sleeping pill much earlier prior to going to bed. - Patient of Dr. Larsen and had a carotid stent placed on right side. She also had carotid ultrasound February 2018 that demonstrated left proximal ICA severe 60 to 79% stenosis with recommendations of medical management and follow-up in 12 months. -head CT stable -cervical spine CT -no abnormalities, degenerative disc disease. -lumbar spine x-ray demonstrated degenerative grade 1 anteriolithesis L4-L5. -Chest x-ray unremarkable. MRI of head/brain with no acute intracranial abnormality MRI IMPRESSION: 1. Severe spinal canal stenosis at L4-L5. Mild spinal canal stenosis at L3-L4. 2. Degenerative changes contribute to multilevel neural foraminal narrowing as above. 3. Grade 1 anterolisthesis at L4-L5. 4. Bone marrow edema pattern is seen involving is the L4 and L5 spinous processes as well as the left L4-L5 facet joint. This may be degenerative in nature. echo Impressions: LVEF 60-65%. Normal LV chamber size, wall thickness and function. Mild left ventricular diastolic dysfunction. Normal right ventricular structure and function. Mild pulmonary hypertension. No significant valvular dysfunction. -NIH scoring per stroke protocol -PT/OT ordered-awaiting recommendations -fall precautions Qualifiers: Encounter type: initial encounter Qualified Code(s): W19.XXXA - Unspecified fall, initial encounter (6) Tobacco abuse counseling Current Visit: Yes Status: Acute Assessment and plan: She is a current smoker and was adamant that she was not interested in quitting smoking. (7) CAD (coronary artery disease) Current Visit: Yes Status: Acute Assessment and plan: History of CAD with one stent. Taking Crestor, Plavix, aspirin -continue home medications Nitroglycerin for chest pain Qualifiers: Coronary Disease-Associated Artery/Lesion type: unspecified vessel or lesion type [place] vs. transplanted heart: [place] heart Associated angina: without angina Qualified Code(s): I25.10 - Atherosclerotic heart disease of [place] coronary artery without angina pectoris (8) DVT prophylaxis Current Visit: Yes Status: Acute Assessment and plan: SCD - Time Spent With Patient Total time spent is greater than 50% in coordination of care (as documented) at patient's floor/unit and/or counseling patient: - Subjective Interval history: Patient seen and examined at bedside. Patient is in bed complaints of back pain she does have some left foot drop. Patient is taking opiates. She does experience nausea encouraged patient to take Zofran as well as start with [employer] and we can increase as needed patient agreeable to taking [employer] at this time. Patient will be evaluated by cardiology for surgical clearance. - Constitutional Vitals: Temp Pulse Resp BP Pulse Ox 98.7 F 76 16 156/79 96 05/31/18 15:41 05/31/18 15:41 05/31/18 15:41 05/31/18 15:41 05/31/18 15:41 General appearance: Present: A&O X 3, pleasant, no acute distress - Head Head exam: Present: atraumatic, normocephalic - Eye Eye exam: Present: PERRL, conjuntiva pink, sclera anicteric Pupils: Present: PERRL - Neck Neck exam general surgery: Present: supple, trachea midline. Absent: lymphadenopathy - Respiratory Respiratory exam: Present: CTAB. Absent: accessory muscle use, rales, rhonchi, wheezes - Cardiovascular Cardiovascular exam: Present: RRR, +S1, +S2. Absent: diastolic murmur, gallop, rubs, systolic murmur - GI/Abdominal GI/Abdominal exam: Present: normal bowel sounds, soft, no peritoneal signs. Absent: distended, tenderness - Extremities Exam Extremities exam: Present: warm, radial pulses palpable and symmetrical. Absent : calf tenderness, cyanotic, pedal edema - Neurological Exam Neurological exam: Present: CN II-XII intact, oriented X3, no focal deficits. Absent: pronater drift, facial droop, speech deficit Additional comments: Left foot drop - Skin Skin exam: Present: dry, intact Internal Medicine: Result - Labs CBC & Chem 7: 05/31/18 05:45 05/31/18 05:45 Labs: Short CBC 05/31/18 Range/Units 05:45 WBC 9.7 (4.3-11.1) K/mcL Hgb 13.1 (11.5-15.4) g/dL Hct 40.1 (35.3-44.9) % Plt Count 392 (140-400) K/mcL Neutrophils # 5.2 (1.6-8.9) K/mcL BMP 05/31/18 05:45 Sodium 140 Potassium 3.5 Chloride 104 Carbon Dioxide 26 BUN 19 Creatinine 1.02 Glucose 96 Calcium 9.2 - ABG Interpretation ABG results: PT/INR, D-dimer PT 12.0 Seconds (9.4-12.1) 05/29/18 18:07 Consult Discharge Plan - Plan Referrals: Heron Yepez MD [Primary Care Provider] -
[2018-05-31] MEDS: ALPRAZolam 1 MG TABLET PO PRN (20:39)
[2018-05-31] MEDS: *HR* HYDROcodone/Acet 5/325 mg TABLET PO PRN (22:52)
[2018-06-01 04:08] LABS: Basophils # 0.1 K/mcL (0.0-0.2); Basophils % 0.8 %; Eosinophils # 0.2 K/mcL (0.0-0.6); Eosinophils % 1.5 %; Hematocrit 39.5 % (35.3-44.9); Hemoglobin 13.5 g/dL (11.5-15.4); Immature Granulocytes % 0.6 % (0-4); Lymphocytes # 3.2 K/mcL (0.6-4.6); Lymphocytes % 32.4 %; Mean Corpuscular HGB Conc 34.2 g/dL (31.6-35.5); Mean Corpuscular Hemoglobin 28.4 pg (28.0-33.3); Mean Platelet Volume 10.7 fL (9.4-12.4); Monocytes # 0.9 K/mcL (0.0-1.3); Monocytes % 8.6 %; Neutrophils # 5.5 K/mcL (1.6-8.9); Platelet Count 360 K/mcL (140-400); Red Blood Count 4.76 M/mcL (3.82-4.97); Red Cell Distribution Width 13.5 % (11.5-14.5); Segmented Neutrophils % 56.1 %
[2018-06-01 04:15] LABS: BUN/Creatinine Ratio 23 (6-26); Blood Urea Nitrogen 20 mg/dL (8-23); Calcium 9.1 mg/dL (8.6-10.3); Carbon Dioxide 24 mEq/L (23-29); Chloride 106 mEq/L (98-107); Glucose 104 mg/dL (70-105); Osmolality,Calculated 291 (280-300); Potassium 3.9 mEq/L (3.5-5.1); Sodium 139 mEq/L (136-145); eGFR For African Americans > 60 (> 60); eGFR For Non-African Americans > 60 (> 60)
[2018-06-01] MEDS: Furosemide 40 MG TABLET PO SCH (09:02)
[2018-06-01] MEDS: Metoprolol XL (24 HR) Succ 25 MG TAB.ER.24H PO SCH (09:02)
[2018-06-01] MEDS: Aspirin Enteric Coated 81 MG Tablet PO SCH (09:03)
[2018-06-01] MEDS: *HR* HYDROcodone/Acet 5/325 mg TABLET PO PRN ×3 (09:03→23:55)
--- NOTE | 2018-06-01 11:27 | Internal Med Progress Note ---
Date of Encounter: 06/01/18 Time of Encounter: 11:27 - Assessment and plan (1) Low back pain radiating to both legs Current Visit: Yes Status: Acute Assessment and plan: -Low back pain with pain radiating down both legs since sliding off bed 9 days ago. The past 3 days pain has worsened and intensity to the point that she has to sit and scoot on a chair to move around. -lumbar spine x-ray demonstrated degenerative grade 1 anteriolithesis L4-L5. -Dr. Brooks has been consulted-considering surgery informant posterior lumbar interbody fusion L4-L5 we will have cardiology evaluate for surgical clearance since patient does have past cardiac history of MT and stent placement, also history of CVA MRI spine IMPRESSION: 1. Severe spinal canal stenosis at L4-L5. Mild spinal canal stenosis at L3-L4. 2. Degenerative changes contribute to multilevel neural foraminal narrowing as above. 3. Grade 1 anterolisthesis at L4-L5. 4. Bone marrow edema pattern is seen involving is the L4 and L5 spinous processes as well as the left L4-L5 facet joint. This may be degenerative in nature. - -lidocaine patch ordered -patient's home dose of tramadol ordered -Consulted Dr. Brooks ortho spine (2) History of CVA (cerebrovascular accident) Current Visit: Yes Status: Acute (3) Hypertension Current Visit: Yes Status: Acute Assessment and plan: History of hypertension taking lisinopril and metoprolol -continue home medications Qualifiers: Hypertension type: essential hypertension Qualified Code(s): I10 - Essential (primary) hypertension (4) COPD (chronic obstructive pulmonary disease) Current Visit: Yes Status: Acute Qualifiers: COPD type: unspecified COPD Qualified Code(s): J44.9 - Chronic obstructive pulmonary disease, unspecified (5) Fall Current Visit: Yes Status: Acute Assessment and plan: Concern for CVA vs medication use-sleeping pill. Most likely medication related due to patient not having new symptoms concerning of stroke and imaging thus far is negative. -Patient reported sliding off her bed and hitting her head 9 days ago and did not remember how she fell off the bed or how she got back into bed. History of cerebellar stroke with residual left-sided weakness. She also reported she takes an hlju-afy-qebhlmn sleeping pill at bedtime and that she may have been sleepy and slid off the bed since this is happened her before when she has taken her sleeping pill much earlier prior to going to bed. - Patient of Dr. aLrsen and had a carotid stent placed on right side. She also had carotid ultrasound February 2018 that demonstrated left proximal ICA severe 60 to 79% stenosis with recommendations of medical management and follow-up in 12 months. -head CT stable -cervical spine CT -no abnormalities, degenerative disc disease. -lumbar spine x-ray demonstrated degenerative grade 1 anteriolithesis L4-L5. -Chest x-ray unremarkable. MRI of head/brain with no acute intracranial abnormality MRI IMPRESSION: 1. Severe spinal canal stenosis at L4-L5. Mild spinal canal stenosis at L3-L4. 2. Degenerative changes contribute to multilevel neural foraminal narrowing as above. 3. Grade 1 anterolisthesis at L4-L5. 4. Bone marrow edema pattern is seen involving is the L4 and L5 spinous processes as well as the left L4-L5 facet joint. This may be degenerative in nature. echo Impressions: LVEF 60-65%. Normal LV chamber size, wall thickness and function. Mild left ventricular diastolic dysfunction. Normal right ventricular structure and function. Mild pulmonary hypertension. No significant valvular dysfunction. -NIH scoring per stroke protocol -PT/OT ordered-awaiting recommendations -fall precautions Qualifiers: Encounter type: initial encounter Qualified Code(s): W19.XXXA - Unspecified fall, initial encounter (6) Tobacco abuse counseling Current Visit: Yes Status: Acute Assessment and plan: She is a current smoker and was adamant that she was not interested in quitting smoking. (7) CAD (coronary artery disease) Current Visit: Yes Status: Acute Assessment and plan: History of CAD with one stent. Taking Crestor, Plavix, aspirin -continue home medications Nitroglycerin for chest pain Qualifiers: Coronary Disease-Associated Artery/Lesion type: unspecified vessel or lesion type [place] vs. transplanted heart: [place] heart Associated angina: without angina Qualified Code(s): I25.10 - Atherosclerotic heart disease of [place] coronary artery without angina pectoris (8) DVT prophylaxis Current Visit: Yes Status: Acute Assessment and plan: SCD - Time Spent With Patient Total time spent is greater than 50% in coordination of care (as documented) at patient's floor/unit and/or counseling patient: - Subjective Interval history: Patient seen and examined at bedside. Patient is in bed complaints of back pain she does have some left foot drop. Patient has been taking norco with better pain control and lidocaine patch . States pain is improved . Anticipate surgery next week - Constitutional Vitals: Temp Pulse Resp BP Pulse Ox 98.6 F 80 16 136/76 95 06/01/18 11:14 06/01/18 11:14 06/01/18 11:14 06/01/18 11:14 06/01/18 11:14 General appearance: Present: A&O X 3, pleasant, no acute distress - Head Head exam: Present: atraumatic, normocephalic - Eye Eye exam: Present: PERRL, conjuntiva pink, sclera anicteric Pupils: Present: PERRL - Neck Neck exam general surgery: Present: supple, trachea midline. Absent: lymphadenopathy - Respiratory Respiratory exam: Present: CTAB. Absent: accessory muscle use, rales, rhonchi, wheezes - Cardiovascular Cardiovascular exam: Present: RRR, +S1, +S2. Absent: diastolic murmur, gallop, rubs, systolic murmur - GI/Abdominal GI/Abdominal exam: Present: normal bowel sounds, soft, no peritoneal signs. Absent: distended, tenderness - Extremities Exam Extremities exam: Present: warm, radial pulses palpable and symmetrical. Absent : calf tenderness, cyanotic, pedal edema - Neurological Exam Neurological exam: Present: CN II-XII intact, oriented X3, no focal deficits. Absent: pronater drift, facial droop, speech deficit Additional comments: Left foot drop left leg weakness - Skin Skin exam: Present: dry, intact Internal Medicine: Result - Labs CBC & Chem 7: 06/01/18 03:49 06/01/18 03:49 Labs: Short CBC 06/01/18 Range/Units 03:49 WBC 9.8 (4.3-11.1) K/mcL Hgb 13.5 (11.5-15.4) g/dL Hct 39.5 (35.3-44.9) % Plt Count 360 (140-400) K/mcL Neutrophils # 5.5 (1.6-8.9) K/mcL BMP 06/01/18 03:49 Sodium 139 Potassium 3.9 Chloride 106 Carbon Dioxide 24 BUN 20 Creatinine 0.86 Glucose 104 Calcium 9.1 - ABG Interpretation ABG results: PT/INR, D-dimer PT 12.0 Seconds (9.4-12.1) 05/29/18 18:07 Consult Discharge Plan - Plan Referrals: Heron Yepez MD [Primary Care Provider] -
--- NOTE | 2018-06-01 14:23 | Cardiology Consult Note ---
Date of Encounter: 06/01/18 Time of Encounter: 12:45 Assessment and Plan (1) CAD (coronary artery disease) Current Visit: Yes Status: Chronic Pt remains chest pain free post PCI with FRANKI unknown vessel in 2013, (old records requested), excellent exercise tolerence, EKG no acute changes, pt is at low cardiovascular risk for planned procedures. Will obtain echo to confirm LV function normal, no new seqmental wall motion abnormalities. Pt can stop Plavix from cardiovascular perspective, would however discuss with vascular surgery as it appears they have continued Plavix for severe bilateral carotid stenosis before discontinuing. Qualifiers: Coronary Disease-Associated Artery/Lesion type: [place] artery [place] vs. transplanted heart: [place] heart Associated angina: without angina Qualified Code(s): I25.10 - Atherosclerotic heart disease of [place] coronary artery without angina pectoris (2) Hypertension Current Visit: Yes Status: Chronic Adequately controlled on current medications. Qualifiers: Hypertension type: essential hypertension Qualified Code(s): I10 - Essential (primary) hypertension (3) COPD (chronic obstructive pulmonary disease) Current Visit: Yes Status: Chronic Well compensated, continues to smoke against medical advice, recommend smoking cessation. Qualifiers: COPD type: unspecified COPD Qualified Code(s): J44.9 - Chronic obstructive pulmonary disease, unspecified (4) Tobacco abuse counseling Current Visit: Yes Status: Chronic Pt is not able to pick stop date, declines pharmacologic support. (5) Lumbar stenosis with neurogenic claudication Current Visit: Yes Status: Acute new onset worsening low back pain following traumatic injury, will defer to ortho, no cardiovascular contraindications to planned procedure. (6) Peripheral vascular disease Current Visit: Yes Status: Chronic Moderate to severe bilateral carotid disease, following with vascular surgery, would consult before discontinue Plavix with known carotid dx and previous stroke. Discussion w patient/family: The assessment and plan as outlined above was discussed with the patient and/or family members who expressed understanding and agreement. All questions were answered. Thank you for involving us in the care of your patient. Please call with any questions. History of Present Illness Consult date: 06/01/18 Requesting physician: Car Pickens Consult reason: Preoperative risk stratification with hx CAD Chief complaint: Back Pain History of present illness: Ms. Steven is a 77 year old female who presented to the ER with complaint of worsening low back pain after sliding off her bed and landing on the floor approximately 9 days ago. She reports pain was mild until three days ago, when pain increased from 3/10 to 9/10 with movement. She has been unable to walk due to low back pain. She is undergoing evaluation for lumbar spine surgery for what she describes as a ruptured disc. Her pain is now controlled, back to 3/ 10 on current medications. Pt has hx of unstable angina, experiencing chest pain with exertion, 8/10, mid epigastric burning sensation, sudden onset, lasting five to thirty minutes, associated with shortness of breath, initially thought to be GERD, however developed acute EKG changes, underwent LHC/PCI unknown vessel with FRANKI, had relief of chest pain following procedure in 2012. She has not followed up with cardiology since that event. She reports she does see primary care yearly, reports EKG "has been fine", She was very active in her yard gardening up until her falling event, with out provocation of previous chest pain, pressure or shortness of breath. Activity is somewhat limited by residual left sided weakness post stroke in 1992. She has known bilat carotid stenosis, is following with vascular medicine. Past Med Surg Social Fam HX - Past Medical History Medical history: coronary artery disease, CVA, hypertension Additional medical history: Brain Bleed Psychiatric history: anxiety - Past Surgical History Additional surgical history: cardiac stent. Neck Surgery. Bilateral Carpal Tunnel - Social History Smoking Status: Current every day smoker Packs per day: 1 Smokeless Tobacco Status: No Alcohol use: none Drug use: none Medications and Allergies ALPRAZolam [Xanax 1 MG Tablet] 1 mg PO QPM PRN 05/29/18 [History] Albuterol Sulfate [Ventolin Hfa] 1 puff IH Q4H PRN 05/29/18 [History] Aspirin Enteric Coated [Aspirin EC] 81 mg PO QAM 05/29/18 [History] Cholecalciferol (D-3) [Vitamin D] 2,000 unit PO QPM 05/29/18 [History] Clopidogrel [Plavix] 75 mg PO QAM 05/29/18 [History] Furosemide [Lasix] 40 mg PO QAM 05/29/18 [History] Gabapentin [Neurontin] 300 mg PO QPM 05/29/18 [History] Lisinopril [Zestril] 20 mg PO QPM 05/29/18 [History] Metoprolol XL (24 HR) Succ [Toprol XL] 75 mg PO QAM 05/29/18 [History] Rosuvastatin [Crestor] 40 mg PO QPM 05/29/18 [History] Tramadol HCl [Ultram] 100 mg PO TID PRN 05/29/18 [History] 3 Allergy/AdvReac Type Severity Reaction Status Date / Time No Known Allergies Allergy Verified 05/29/18 20:57 All Systems Review: The remainder of the systems were reviewed and are negative - Constitutional Constitutional: frequent falls - Genitourinary Genitourinary: no other - Neurological Neurological: other (mild left sided weakness upper and lower extremities.) Physical Examination Vital Signs, Last 4 Hours Temp Pulse Resp BP Pulse Ox 06/01/18 11:14 98.6 F 80 16 136/76 95 General: Conversant HEENT: Atraumatic, Normocephaly, Mucus Membranes Moist Neck: No JVD, Normal carotid pulses, Other (Bilat soft carotid bruits, right greater than left. ) Cardiac: Reg Rate and Rhythm, Normal S1 and S2 Lungs: Normal Breath Sounds, No Wheeze, Rales, Rhonchi Neuro: Alert and responsive, Other (slightly decreased hand laboratory miller on left. ) Abdomen: Soft, Non-Tender Skin: No rashes noted on visualized skin Musculoskeletal: No Chest Wall Tenderness Extremities: No Clubbing, No Cyanosis, No Edema, Normal Pulses Results 06/01/18 03:49 06/01/18 03:49 Lab Results 06/01/18 06/01/18 03:49 03:49 WBC 9.8 Hgb 13.5 Hct 39.5 Plt Count 360 Sodium 139 Potassium 3.9 Chloride 106 Carbon Dioxide 24 BUN 20 Creatinine 0.86 Glucose 104 Calcium 9.1 - EKG Interpretation EKG results cardiology: personally reviewed, normal ECG, sinus rhythm, no diagnostic ischemia Consult Discharge Plan - Plan Referrals: Heron Yepez MD [Primary Care Provider] -
[2018-06-01] MEDS: Gabapentin 300 MG CAPSULE PO SCH (17:34)
[2018-06-01] MEDS: Lisinopril 20 MG TABLET PO SCH (17:34)
--- NOTE | 2018-06-01 18:07 | Vascular/Endovasc Consult Note ---
Date of Encounter: 06/02/18 Time of Encounter: 18:00 Assessment and Plan (1) Carotid artery stenosis Current Visit: Yes Status: Chronic Asymptomatic left internal carotid stenosis. Degree of stenosis is not high grade and does not require surgical intervention at this time. Okay to hold plavix for upcoming spinal surgery. Smoking cessation urged. Repeat carotid duplex in one year. Qualifiers: Laterality: left Qualified Code(s): I65.22 - Occlusion and stenosis of left carotid artery - History of Present Illness Consult date: 06/01/18 Requesting physician: Ryan Brooks Jr Consult reason: carotid stenosis, preoperative clearance History of present illness: Ms. Steven is a 77 year old female s/p recent fall. Spinal surgery was recommended. Vascular surgery was consulted for preoperative clearance. The patient has a history of CVA's with recent carotid duplex demonstrating Left ICA stenosis of 60-79% which was unchanged from a year prior. She is on Aspirin and Plavix. Past Med Surg Social Fam HX - Past Medical History Medical history: coronary artery disease, CVA, hypertension Additional medical history: Brain Bleed Psychiatric history: anxiety - Past Surgical History Additional surgical history: cardiac stent. Neck Surgery. Bilateral Carpal Tunnel - Social History Smoking Status: Current every day smoker Packs per day: 1 Smokeless Tobacco Status: No Alcohol use: none Drug use: none Medications and Allergies ALPRAZolam [Xanax 1 MG Tablet] 1 mg PO QPM PRN 05/29/18 [History] Albuterol Sulfate [Ventolin Hfa] 1 puff IH Q4H PRN 05/29/18 [History] Aspirin Enteric Coated [Aspirin EC] 81 mg PO QAM 05/29/18 [History] Cholecalciferol (D-3) [Vitamin D] 2,000 unit PO QPM 05/29/18 [History] Clopidogrel [Plavix] 75 mg PO QAM 05/29/18 [History] Furosemide [Lasix] 40 mg PO QAM 05/29/18 [History] Gabapentin [Neurontin] 300 mg PO QPM 05/29/18 [History] Lisinopril [Zestril] 20 mg PO QPM 05/29/18 [History] Metoprolol XL (24 HR) Succ [Toprol XL] 75 mg PO QAM 05/29/18 [History] Rosuvastatin [Crestor] 40 mg PO QPM 05/29/18 [History] Tramadol HCl [Ultram] 100 mg PO TID PRN 05/29/18 [History] 3 Allergy/AdvReac Type Severity Reaction Status Date / Time No Known Allergies Allergy Verified 05/29/18 20:57 All Systems Review: The remainder of the systems were reviewed and are negative Exam Vital Signs, Last 4 Hours Temp Pulse Resp BP Pulse Ox 06/01/18 14:56 98.0 F 82 16 118/69 93 General: Present: Conversant, No Apparent Distress Cardiac: Present: Reg Rate and Rhythm Lungs: Present: Normal Breath Sounds Neuro: Present: Alert and responsive, No focal deficits noted Abdomen: Present: Soft Vascular: Present: Normal capillary refill Consult Discharge Plan - Plan Referrals: Heron Yepez MD [Primary Care Provider] -
[2018-06-01] MEDS: ALPRAZolam 1 MG TABLET PO PRN (20:19)
[2018-06-02] MEDS: *HR* HYDROcodone/Acet 5/325 mg TABLET PO PRN ×3 (05:28→21:50)
[2018-06-02] MEDS: Furosemide 40 MG TABLET PO SCH (08:27)
[2018-06-02] MEDS: Metoprolol XL (24 HR) Succ 25 MG TAB.ER.24H PO SCH (08:27)
[2018-06-02] MEDS: Aspirin Enteric Coated 81 MG Tablet PO SCH (08:27)
[2018-06-02] MEDS: Lisinopril 20 MG TABLET PO SCH (17:48)
[2018-06-02] MEDS: Gabapentin 300 MG CAPSULE PO SCH (17:48)
--- NOTE | 2018-06-02 19:44 | Internal Med Progress Note ---
Date of Encounter: 06/02/18 Time of Encounter: 11:00 - Assessment and plan (1) Low back pain radiating to both legs Current Visit: Yes Status: Acute Assessment and plan: -Low back pain with pain radiating down both legs since sliding off bed 9 days ago. The past 3 days pain has worsened and intensity to the point that she has to sit and scoot on a chair to move around. -lumbar spine x-ray demonstrated degenerative grade 1 anteriolithesis L4-L5. -Dr. Brooks has been consulted-considering surgery informant posterior lumbar interbody fusion L4-L5 we will have cardiology evaluate and clear for surgery - vascular surgery also evaluated and ok to hold plavix prior to surgery. She will NPO after midnight and undergo surgery in AM MRI spine IMPRESSION: 1. Severe spinal canal stenosis at L4-L5. Mild spinal canal stenosis at L3-L4. 2. Degenerative changes contribute to multilevel neural foraminal narrowing as above. 3. Grade 1 anterolisthesis at L4-L5. 4. Bone marrow edema pattern is seen involving is the L4 and L5 spinous processes as well as the left L4-L5 facet joint. This may be degenerative in nature. - -lidocaine patch ordered -patient afraid of taking narcotics- has been doing well with [place] we will continue -Consulted Dr. Brooks ortho spine PT/OT once ok with ortho (2) History of CVA (cerebrovascular accident) Current Visit: Yes Status: Acute Assessment and plan: History of cerebellar CVA with residual left-sided weakness. appears to be equal strenght at this time Patient currently taking Crestor, Plavix, aspirin. -we will hold plavix for impending surgery - seen by vascular who agrees (3) Hypertension Current Visit: Yes Status: Chronic Assessment and plan: History of hypertension taking lisinopril and metoprolol -continue home medications Qualifiers: Hypertension type: essential hypertension Qualified Code(s): I10 - Essential (primary) hypertension (4) COPD (chronic obstructive pulmonary disease) Current Visit: Yes Status: Chronic Assessment and plan: Reported history of COPD taking albuterol inhaler as needed.-Stable at this time -Continue home albuterol Oxygen as needed Qualifiers: COPD type: unspecified COPD Qualified Code(s): J44.9 - Chronic obstructive pulmonary disease, unspecified (5) Fall Current Visit: Yes Status: Acute Assessment and plan: Concern for CVA vs medication use-sleeping pill. Most likely medication related due to patient not having new symptoms concerning of stroke and imaging thus far is negative. -Patient reported sliding off her bed and hitting her head 9 days ago and did not remember how she fell off the bed or how she got back into bed. History of cerebellar stroke with residual left-sided weakness. She also reported she takes an mqgs-shj-nqfizor sleeping pill at bedtime and that she may have been sleepy and slid off the bed since this is happened her before when she has taken her sleeping pill much earlier prior to going to bed. - Patient of Dr. Larsen and had a carotid stent placed on right side. She also had carotid ultrasound February 2018 that demonstrated left proximal ICA severe 60 to 79% stenosis with recommendations of medical management and follow-up in 12 months. -head CT stable -cervical spine CT -no abnormalities, degenerative disc disease. -lumbar spine x-ray demonstrated degenerative grade 1 anteriolithesis L4-L5. -Chest x-ray unremarkable. MRI of head/brain with no acute intracranial abnormality MRI IMPRESSION: 1. Severe spinal canal stenosis at L4-L5. Mild spinal canal stenosis at L3-L4. 2. Degenerative changes contribute to multilevel neural foraminal narrowing as above. 3. Grade 1 anterolisthesis at L4-L5. 4. Bone marrow edema pattern is seen involving is the L4 and L5 spinous processes as well as the left L4-L5 facet joint. This may be degenerative in nature. echo Impressions: LVEF 60-65%. Normal LV chamber size, wall thickness and function. Mild left ventricular diastolic dysfunction. Normal right ventricular structure and function. Mild pulmonary hypertension. No significant valvular dysfunction. -NIH scoring per stroke protocol -PT/OT ordered-awaiting recommendations -fall precautions PT/OT once ok by surgery Qualifiers: Encounter type: initial encounter Qualified Code(s): W19.XXXA - Unspecified fall, initial encounter (6) Tobacco abuse counseling Current Visit: Yes Status: Chronic Assessment and plan: She is a current smoker and was adamant that she was not interested in quitting smoking. (7) CAD (coronary artery disease) Current Visit: Yes Status: Chronic Assessment and plan: History of CAD with one stent. Taking Crestor, Plavix, aspirin- Hold Plavix for surgery -continue home medications Nitroglycerin for chest pain Qualifiers: Coronary Disease-Associated Artery/Lesion type: [place] artery [place] vs. transplanted heart: [place] heart Associated angina: without angina Qualified Code(s): I25.10 - Atherosclerotic heart disease of [place] coronary artery without angina pectoris (8) DVT prophylaxis Current Visit: Yes Status: Acute Assessment and plan: SCD - Time Spent With Patient Total time spent is greater than 50% in coordination of care (as documented) at patient's floor/unit and/or counseling patient: - Subjective Interval history: Patient seen and examined at bedside. Patient is in bed complaints of back pain she does have some left foot drop. Patient has been taking norco with better pain control and lidocaine patch . States pain is improved . She has been seen by both cardiology as well as vascular surgery who have cleared her for surgery. She will NPO after midnight Plavix held. - Constitutional Vitals: Temp Pulse Resp BP Pulse Ox 98.6 F 73 14 143/81 96 06/02/18 19:17 06/02/18 19:17 06/02/18 19:17 06/02/18 19:17 06/02/18 19:17 General appearance: Present: A&O X 3, pleasant, no acute distress - Head Head exam: Present: atraumatic, normocephalic - Eye Eye exam: Present: PERRL, conjuntiva pink, sclera anicteric Pupils: Present: PERRL - Neck Neck exam general surgery: Present: supple, trachea midline. Absent: lymphadenopathy - Respiratory Respiratory exam: Present: CTAB. Absent: accessory muscle use, rales, rhonchi, wheezes - Cardiovascular Cardiovascular exam: Present: RRR, +S1, +S2. Absent: diastolic murmur, gallop, rubs, systolic murmur - GI/Abdominal GI/Abdominal exam: Present: normal bowel sounds, soft, no peritoneal signs. Absent: distended, tenderness - Extremities Exam Extremities exam: Present: warm, radial pulses palpable and symmetrical. Absent : calf tenderness, cyanotic, pedal edema - Neurological Exam Neurological exam: Present: CN II-XII intact, oriented X3, no focal deficits. Absent: pronater drift, facial droop, speech deficit - Skin Skin exam: Present: dry, intact Internal Medicine: Result - Labs CBC & Chem 7: 06/01/18 03:49 06/01/18 03:49 - ABG Interpretation ABG results: PT/INR, D-dimer PT 12.0 Seconds (9.4-12.1) 05/29/18 18:07 Consult Discharge Plan - Plan Referrals: Heron Yepez MD [Primary Care Provider] -
--- NOTE | 2018-06-02 22:44 | Anesthesia Evaluation PreOp ---
<Samantha Dave - Last Filed: 06/02/18 22:47> Date of Encounter: 06/02/18 - Past History Planned Operation: PLIF L4-5 Cardiac History: HTN, Hyperlipidemia, Cardiac Stent (2012), Other (CAD) Pulmonary History: Smoker, COPD REGIONAL COORDINATOR History: CVA (hemorrhagic cerebellar infarct), Other (Left ICA stenosis; recently onsent LLE weakness currently attributed to neural foraminal stenosis) Other Medical History: Denies Any Significant HX Anesthesia History: Past Anesthesia (cardiac stent. Neck Surgery. Bilateral Carpal Tunnel) Alcohol Use: none Drug use: none Medications and Allergies ALPRAZolam [Xanax 1 MG Tablet] 1 mg PO QPM PRN 05/29/18 [History] Albuterol Sulfate [Ventolin Hfa] 1 puff IH Q4H PRN 05/29/18 [History] Aspirin Enteric Coated [Aspirin EC] 81 mg PO QAM 05/29/18 [History] Cholecalciferol (D-3) [Vitamin D] 2,000 unit PO QPM 05/29/18 [History] Clopidogrel [Plavix] 75 mg PO QAM 05/29/18 [History] Furosemide [Lasix] 40 mg PO QAM 05/29/18 [History] Gabapentin [Neurontin] 300 mg PO QPM 05/29/18 [History] Lisinopril [Zestril] 20 mg PO QPM 05/29/18 [History] Metoprolol XL (24 HR) Succ [Toprol XL] 75 mg PO QAM 05/29/18 [History] Rosuvastatin [Crestor] 40 mg PO QPM 05/29/18 [History] Tramadol HCl [Ultram] 100 mg PO TID PRN 05/29/18 [History] 3 Allergy/AdvReac Type Severity Reaction Status Date / Time No Known Allergies Allergy Verified 05/29/18 20:57 - Meds/Allergy Pre-op Review Medications Reviewed: Yes Allergies Reviewed: Yes Beta Blockers on Current Med List: Yes (metoprolol) Anesthesia Results - Labs 06/01/18 03:49 06/01/18 03:49 - Imaging EKG: report reviewed, image reviewed (SR) Additional studies: TTE: Impressions: LVEF 60-65%. Normal LV chamber size, wall thickness and function. Mild left ventricular diastolic dysfunction. Normal right ventricular structure and function. Mild pulmonary hypertension. No significant valvular dysfunction. Cardiology clearance: Pt remains chest pain free post PCI with FRANKI unknown vessel in 2013, (old records requested), excellent exercise tolerence, EKG no acute changes, pt is at low cardiovascular risk for planned procedures. Will obtain echo to confirm LV function normal, no new seqmental wall motion abnormalities. Pt can stop Plavix from cardiovascular perspective, would however discuss with vascular surgery as it appears they have continued Plavix for severe bilateral carotid stenosis before discontinuing. Vascular surgery clearance (regarding plavix): Asymptomatic left internal carotid stenosis. Degree of stenosis is not high grade and does not require surgical intervention at this time. Okay to hold plavix for upcoming spinal surgery. Smoking cessation urged. Repeat carotid duplex in one year. 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, no residual), Other Other Medical History: Denies Any Significant HX Anesthesia History: No Prior Anesthetic Complications, Past Anesthesia : No Alcohol Use: none Drug use: none - Meds/Allergy Pre-op Review Medications Reviewed: Yes Allergies Reviewed: Yes Beta Blockers on Current Med List: Yes If Beta Blockers taken, Date/Time (Last Dose taken): 07:36 06/03/18 Anesthesia Results - Labs 06/03/18 06:27 06/03/18 06:27 - Imaging EKG: image reviewed Anesthesia Exam Vital Signs/O2 Sat, Most Current Temp Pulse Resp BP Pulse Ox 97.8 F 98 16 116/75 94 06/03/18 07:59 06/03/18 07:59 06/03/18 07:59 06/03/18 07:59 07/10/18 07:59 - HEENT Pupil (Motor): Pupils equal, EOMI Mallampati: II Teeth: Edentulous Oral Opening: Greater than 3 - REGIONAL COORDINATOR LOC: Oriented REGIONAL COORDINATOR Motor: Normal RUE, Normal LUE, Normal RLE, Normal LLE, Normal Face REGIONAL COORDINATOR Sensory: Normal: RUE, LUE, RLE, LLE, Face - Cardiac Rhythm: Regular Murmur: None JVD: No Carotid Bruit: No - Pulmonary Breath Sounds: bilateral Clear Respiratory Effort: Symmetrical Anesthesia Assess/Plan ASA Score: 3 Anesthetic Plan: General Autologous Blood: Yes Monitoring Plan: Standard Monitors Recovery Plan: PACU
[2018-06-02] MEDS: ALPRAZolam 1 MG TABLET PO PRN (23:45)
[2018-06-03] MEDS ORDERED: Bacitracin 50,000 UNIT, Polymyxin B Sulfate 500,000 UNIT, Sodium Chloride IRRigation 1,... IR ONE (06:00)
[2018-06-03 06:55] LABS: Basophils # 0.1 K/mcL (0.0-0.2); Basophils % 0.6 %; Eosinophils # 0.1 K/mcL (0.0-0.6); Eosinophils % 0.7 %; Hematocrit 43.3 % (35.3-44.9); Hemoglobin 14.4 g/dL (11.5-15.4); Immature Granulocytes % 0.4 % (0-4); Lymphocytes # 1.7 K/mcL (0.6-4.6); Lymphocytes % 11.9 %; Mean Corpuscular HGB Conc 33.3 g/dL (31.6-35.5); Mean Corpuscular Volume 84.1 fL (83.0-100.0); Mean Platelet Volume 11.1 fL (9.4-12.4); Monocytes % 7.3 %; Neutrophils # 11.2 K/mcL (1.6-8.9); Platelet Count 386 K/mcL (140-400); Red Blood Count 5.15 M/mcL (3.82-4.97); Red Cell Distribution Width 13.8 % (11.5-14.5); Segmented Neutrophils % 79.1 %
[2018-06-03 07:00] LABS: INR 1.1; Prothrombin Time 12.4 Seconds (9.4-12.1)
[2018-06-03 07:17] LABS: BUN/Creatinine Ratio 24 (6-26); Blood Urea Nitrogen 25 mg/dL (8-23); Calcium 9.3 mg/dL (8.6-10.3); Carbon Dioxide 28 mEq/L (23-29); Chloride 102 mEq/L (98-107); Glucose 164 mg/dL (70-105); Osmolality,Calculated 294 (280-300); Potassium 3.7 mEq/L (3.5-5.1); Sodium 138 mEq/L (136-145); eGFR For African Americans > 60 (> 60); eGFR For Non-African Americans 50 (> 60)
[2018-06-03] MEDS: Metoprolol XL (24 HR) Succ 25 MG TAB.ER.24H PO SCH (07:36)
[2018-06-03] MEDS: Furosemide 40 MG TABLET PO SCH ×2 (07:36→07:39)
[2018-06-03] MEDS: *HR* HYDROcodone/Acet 5/325 mg TABLET PO PRN (07:36)
[2018-06-03] MEDS: Aspirin Enteric Coated 81 MG Tablet PO SCH (07:36)
--- NOTE | 2018-06-03 08:08 | Spine Progress Note ---
Date of Encounter: 06/03/18 Time of Encounter: 08:07 - Assessment and Plan (1) Lumbar stenosis with neurogenic claudication Current Visit: Yes Status: Acute (2) Left foot drop Current Visit: Yes Status: Acute On exam she is sitting on the side of the bed in mild distress secondary to back pain. Afebrile vital signs stable. She has limitation with forward flexion and extension of the lumbar spine. Extension causes pain into the buttocks and legs. Her hips move symmetrically. There is no clonus. She has significant weakness in dorsiflexion of the left foot which is 2 on a motor scale consistent with left foot drop. Her left foot/ankle is inverted. She has weakness in the EHL and left quad is well. Pulses are intact. She is otherwise neurovascularly intact with regard to her bilateral lower extremities. MRI of the lumbar spine reveals a grade 1 spondylolisthesis at L4-L5. She has associated severe stenosis at this level. There are multilevel degenerative changes in the lumbar spine. Impression: 1) spondylolisthesis L4-L5 2) severe lumbar stenosis 3) left foot drop 4) focal motor deficit Plan: Due to her concerning weakness and risk for further or permanent neurologic injury I find it reasonable to consider surgery in the form of a posterior lumbar interbody fusion L4-L5. The patient will require medical optimization prior to surgery. Risks benefits possible complications and alternatives were discussed and the patient would like to proceed. (3) Focal motor deficit Current Visit: Yes Status: Acute Subjective Principal diagnosis: Spondylolisthesis, lumbar stenosis, foot drop Interval history: The patient has been medically optimized by the hospitalist and cardiology services and has been off Plavix for several days. Due to her neurologic deficit in wrist for further or permanent neurologic injury we are going to proceed with posterior lumbar interbody fusion L4-L5. Risk benefits and possible complications were discussed and the patient would like to proceed. Objective Vital signs: Vital Signs Temp Pulse Resp BP Pulse Ox 06/03/18 07:59 97.8 F 98 16 116/75 94 06/03/18 03:27 99.1 F 95 15 126/56 94 06/02/18 23:03 98.4 F 14 147/77 94 06/02/18 19:17 98.6 F 73 14 143/81 96 06/02/18 15:17 98.3 F 85 16 120/65 95 06/02/18 11:35 98.3 F 89 16 120/75 93 Intake and Output 06/02/18 06/03/18 06/03/18 23:59 07:59 15:59 Output Total 200 / 200 Balance -200 / -200 Output: Urine 200 / 200 Other: Meal Dinner Percent of Meal Consumed 70% Weight 63.5 kg Patient Weight 06/03/18 23:59 Weight 63.5 kg - Labs CBC & BMP: 06/03/18 06:27 06/03/18 06:27 Labs: Abnormal lab results WBC 14.1 K/mcL (4.3-11.1) H 06/03/18 06:27 RBC 5.15 M/mcL (3.82-4.97) H 06/03/18 06:27 Neutrophils # 11.2 K/mcL (1.6-8.9) H 06/03/18 06:27 PT 12.4 Seconds (9.4-12.1) H 06/03/18 06:27 BUN 25 mg/dL (8-23) H 06/03/18 06:27 Est GFR (Non-Af Amer) 50 (> 60) L 06/03/18 06:27 Glucose 164 mg/dL (70-105) H 06/03/18 06:27 Consult Discharge Plan - Plan Referrals: Heron Yepez MD [Primary Care Provider] -
[2018-06-03] MEDS ORDERED: *HR* FentaNYL (PF) 100 MCG/2 ML VIAL ONE ×2 (09:41→12:29)
[2018-06-03] MEDS ORDERED: *HR* Remifentanil 1 MG VIAL IVP ONE (09:41)
[2018-06-03] MEDS ORDERED: Lidocaine -MPF 2% 2 ML VIAL ONE (09:47)
[2018-06-03] MEDS ORDERED: Ondansetron 4 MG/2 ML VIAL ONE (09:47)
[2018-06-03] MEDS ORDERED: *HR* Rocuronium Bromide 50 MG/5 ML VIAL ONE (09:47)
[2018-06-03] MEDS ORDERED: *HR* Propofol 200 MG/20 ML VIAL IVP ONE ×2 (09:47→14:12)
[2018-06-03] MEDS ORDERED: *HR* Phenylephrine 10 MG/ML VIAL ONE (09:47)
[2018-06-03] MEDS ORDERED: *HR* Succinylcholine 200 MG/10 ML VIAL IVP ONE (09:48)
[2018-06-03] MEDS ORDERED: *HR* Vasopressin 20 UNIT/ML VIAL ONE (11:58)
[2018-06-03] MEDS ORDERED: Ondansetron 4 MG/2 ML VIAL IVP PRN ×3 (12:32→21:38)
[2018-06-03] MEDS ORDERED: *HR* HYDROmorphone 2 MG TABLET PO PRN (12:32)
[2018-06-03] MEDS ORDERED: *HR* Metoprolol 5 MG/5 ML VIAL IVP PRN (12:32)
[2018-06-03] MEDS ORDERED: *HR* FentaNYL (PF) 100 MCG/2 ML VIAL IVP PRN (12:32)
[2018-06-03] MEDS ORDERED: Acetaminophen IV 1,000 MG/100 ML INFUS..BTL ONE (14:07)
--- NOTE | 2018-06-03 14:24 | Orthopedic Operative Note ---
Date of procedure: 06/03/18 Pre-op diagnosis: Spondylolisthesis, lumbar stenosis, left foot drop Post-op diagnosis: same Operation/Findings: Posterior lumbar interbody fusion L4-L5: The patient successfully underwent general endotracheal anesthesia. The patient was given antibiotics prior to the start of the procedure. Compression boots and stockings were used for deep vein thrombosis prophylaxis. A Rosado catheter was placed. Leads for neuro monitoring were placed on the upper and lower extremities. This included the cranium. The neuro monitoring personnel confirmed there were satisfactory readings prior to the start of the procedure. The patient was turned prone on the Carson table. The back was prepped and draped in the usual sterile fashion. An incision was was marked and centered over the involved L4-L5 levels in the mid line. The incision was deepened through the lumbar fascia. Bovie cautery and Abraham elevators were used to reflect the paraspinal musculature at the lateral extent of the transverse processes of the involved L4 and L5 levels. Codie clamps were placed over the L4 and L5 spinous processes. An intraoperative lateral fluorograph was obtained. A conversation was held between the surgeon and radiologist and both confirmed we had the correct operative levels. We then placed pedicle screws in standard fashion with the aid of fluoroscopy and anatomic landmarks. Briefly a starter awl was used. A gearshift was subsequently used to enter the yard pilot hole via a transpedicular route into the vertebral body. The yard pilot hole was tapped with an undersized instrument, and subsequently four 6.5 x 40 mm pedicle screws were placed bilaterally at the indicated L4 and L5 levels. The screws were tested with the aid of the neurologic monitoring staff via pedicle screw stimulation. All reading suggested there was no significant cortical wall breech. The screws were also evaluated fluoro- graphically and appeared to be in satisfactory position. We then turned our attention to the decompression portion of the procedure. We removed the supraspinous and interspinous ligaments and subsequently the insertion of the ligamentum flavum on the undersurface of the proximal L4 lamina was dislodged with a curette. We then removed the ligamentum flavum as well as undercut the L4-L5 facets at this L4- L5 level to decompress the lateral recesses. We also performed a L4 laminectomy. After the decompression, which was over and above that which was required to place the interbody graft, the foramen and traversing roots at this L4-L5 level were found to be free and patent. We also took part of the medial facets in order to aid in the decompression. We then protected the neural elements including the thecal sac and traversing nerve root on the left with a dural retractor. We made an annulotomy into the L4-L5 disc space and then removed entire disc material using Pituitary instruments. We trialed various size grafts after the endplates were prepared for graft insertion. A 10 x 26 enter body graft fit well within the L4-L5 disc space. We obtained some bone from the left posterior superior iliac spine through us a separate incision and combined with this with the bone which we had saved from the L4 laminectomy portion of the procedure. This autograft bone was first placed in the anterior portion of the L4-L5 disc space and additional bone was placed within the interbody graft spacer. We then placed the interbody graft spacer obliquely across the L4-L5 disc space towards the midline while protecting the neural elements with a root retractor. When the graft was found to be in satisfactory position the periodicals clerk was removed. We then copiously irrigated the wound. We then decorticated the L4 and L5 transverse processes as well as the L4-L5 facet joints of the involved L4 and L5 levels to aid in the posterolateral fusion. We placed autograft bone in the lateral gutters over these regions. We then placed rods within the screw heads of the involved L4 and L5 levels and first locked the distal screws and then subsequently locked the proximal screws so as to improve and reduce the spondylolisthesis previously seen. We then closed the wound in layers with 1 Vicryl for the fascia, 2-0 Vicryl. Subcutaneous tissue, and Dermabond was used for skin closure. Sterile dressings were placed over the wound. The patient was turned supine on a hospital bed and extubated. All sponge instruments and needle counts were correct at the end of the procedure. The patient tolerated the procedure well without complications. Anesthesia: GETA Surgeon: Ryan Brooks Jr Was there an assistant associate professor present: No Estimated blood loss (cc): 150 Specimen: None Condition: stable Disposition: PACU
[2018-06-03] MEDS ORDERED: Ringers Solution, Lactated 1,000 ML ONE ×2 (14:48→15:37)
[2018-06-03] MEDS ORDERED: Naloxone 0.4 MG/ML INJ IVP PRN ×3 (15:17→21:38)
[2018-06-03 15:58] LABS: Basophils # 0.1 K/mcL (0.0-0.2); Basophils % 0.5 %; Hematocrit 33.7 % (35.3-44.9); Lymphocytes # 0.4 K/mcL (0.6-4.6); Lymphocytes % 3.5 %; Mean Corpuscular HGB Conc 32.9 g/dL (31.6-35.5); Mean Corpuscular Hemoglobin 28.5 pg (28.0-33.3); Mean Corpuscular Volume 86.4 fL (83.0-100.0); Mean Platelet Volume 11.4 fL (9.4-12.4); Monocytes # 0.2 K/mcL (0.0-1.3); Monocytes % 1.8 %; Neutrophils # 9.7 K/mcL (1.6-8.9); Platelet Count 262 K/mcL (140-400); Red Cell Distribution Width 14.1 % (11.5-14.5); Segmented Neutrophils % 93.2 %
[2018-06-03 15:59] LABS: Hemoglobin 11.1 g/dL (11.5-15.4)
[2018-06-03 16:24] LABS: BUN/Creatinine Ratio 22 (6-26); Blood Urea Nitrogen 22 mg/dL (8-23); Calcium 8.5 mg/dL (8.6-10.3); Carbon Dioxide 24 mEq/L (23-29); Chloride 105 mEq/L (98-107); Glucose 180 mg/dL (70-105); Osmolality,Calculated 298 (280-300); Potassium 3.8 mEq/L (3.5-5.1); Sodium 140 mEq/L (136-145); Troponin I < 0.03 ng/mL (< 0.04); eGFR For African Americans > 60 (> 60); eGFR For Non-African Americans 53 (> 60)
--- NOTE | 2018-06-03 16:42 | Internal Med Progress Note ---
Date of Encounter: 06/03/18 Time of Encounter: 16:42 - Assessment and plan (1) Low back pain radiating to both legs Current Visit: Yes Status: Acute Assessment and plan: -Low back pain with pain radiating down both legs since sliding off bed 9 days ago -Also having a serious neurological deficits with left lower extremity numbness , weakness and left foot drop -lumbar spine x-ray demonstrated degenerative grade 1 anteriolithesis L4-L5 -Lumbar spine MRI revealed severe spinal canal stenosis at L4-L5 and mild spinal canal stenosis at L3-L4 -Dr. Brooks has taken the patient to OR for posterior lumbar interbody fusion of L4-L5 -Patient reports that sensations are returning to left lower extremity, strength improving -ABX and pain management per surgery PT/OT once ok with ortho (2) Chest pain Current Visit: Yes Status: Acute Assessment and plan: Developed chest pain During postoperative recovery EKG obtained and was concerning for some T-wave inversion chest pain resolved without further intervention Repeat EKG showing improvement of T-wave inversion Cardiology seeing in consultation, appreciate recommendations Assistant Printer Floor Covering discussed risks and benefits as well as alternatives of LHC and patient does not wish to proceed with LHC at this time Qualifiers: Chest pain type: unspecified Qualified Code(s): R07.9 - Chest pain, unspecified (3) History of CVA (cerebrovascular accident) Current Visit: Yes Status: Acute Assessment and plan: History of cerebellar CVA with residual left-sided weakness. appears to be equal strenght at this time Patient currently taking Crestor, Plavix, aspirin. plavix is on hold as patient is post op cont at a later date (4) Hypertension Current Visit: Yes Status: Chronic Assessment and plan: History of hypertension taking lisinopril and metoprolol -continue home medications Qualifiers: Hypertension type: essential hypertension Qualified Code(s): I10 - Essential (primary) hypertension (5) COPD (chronic obstructive pulmonary disease) Current Visit: Yes Status: Chronic Assessment and plan: history of COPD, not in acute exacerbation taking albuterol inhaler as needed -Continue home albuterol Oxygen as needed Qualifiers: COPD type: unspecified COPD Qualified Code(s): J44.9 - Chronic obstructive pulmonary disease, unspecified (6) Fall Current Visit: Yes Status: Acute Assessment and plan: s/p falls, reports that she slid off her bed and hit her head days ago and did not remember how she fell off the bed or how she got back into bed Denies any syncope or LOC; could possibly related to medication. Patient takes sleeping pill and admits to snacking a sleeping pill the night before fall History of cerebellar stroke with residual left-sided weakness. She also reported she takes an [id number] sleeping pill at bedtime and that she may have -head CT stable -cervical spine CT -no abnormalities, degenerative disc disease. -lumbar spine x-ray demonstrated degenerative grade 1 anteriolithesis L4-L5 with severe spinal canal stenosis; of note, the patient was also experiencing severe neurological symptoms with left lower extremity weakness and numbness -Chest x-ray unremarkable. MRI of head/brain with no acute intracranial abnormality -fall precautions -PT/OT once ok by surgery Qualifiers: Encounter type: initial encounter Qualified Code(s): W19.XXXA - Unspecified fall, initial encounter (7) Tobacco abuse counseling Current Visit: Yes Status: Chronic Assessment and plan: current smoker and was adamant that she was not interested in quitting smoking discussed risks of smoking and benefits of cessation (8) CAD (coronary artery disease) Current Visit: Yes Status: Chronic Assessment and plan: cont cardiac meds Qualifiers: Coronary Disease-Associated Artery/Lesion type: [place] artery [place] vs. transplanted heart: [place] heart Associated angina: without angina Qualified Code(s): I25.10 - Atherosclerotic heart disease of [place] coronary artery without angina pectoris (9) Hypotension Current Visit: Yes Status: Acute Assessment and plan: Medication-induced hypotension status post surgery Systolic blood pressure in the 70s-80s and postoperative recovery Was also noted to have T-wave inversions on EKG and chest pain T-wave inversions improving, see note above for further assessment and plan Was sent to ICU for further monitoring Received additional IV fluid and blood pressure improved Most recent blood pressure 98/62 Patient is verbal alert and oriented 3 and appropriate Does not appear to be in any distress at this time Qualifiers: Hypotension type: other hypotension type Qualified Code(s): I95.89 - Other hypotension (10) DVT prophylaxis Current Visit: Yes Status: Acute Assessment and plan: SCD's - Time Spent With Patient Total time spent is greater than 50% in coordination of care (as documented) at patient's floor/unit and/or counseling patient: 25 - 35 minutes - Constitutional Vitals: Temp Pulse Resp BP Pulse Ox 97.7 F 94 18 93/56 100 06/03/18 16:24 06/03/18 16:24 06/03/18 16:24 06/03/18 16:24 06/03/18 16:24 General appearance: Present: A&O X 3, pleasant, no acute distress Internal Medicine: Result - Labs CBC & Chem 7: 06/03/18 15:44 06/03/18 15:44 Labs: Short CBC 06/03/18 06/03/18 Range/Units 06:27 15:44 WBC 14.1 H 10.4 (4.3-11.1) K/mcL Hgb 14.4 11.1 L D (11.5-15.4) g/dL Hct 43.3 33.7 L (35.3-44.9) % Plt Count 386 262 (140-400) K/mcL Neutrophils # 11.2 H 9.7 H (1.6-8.9) K/mcL BMP 06/03/18 06/03/18 06:27 15:44 Sodium 138 140 Potassium 3.7 3.8 Chloride 102 105 Carbon Dioxide 28 24 BUN 25 H 22 Creatinine 1.06 1.02 Glucose 164 H 180 H Calcium 9.3 8.5 L Cardiac Enzymes 06/03/18 Range/Units 15:44 Troponin I < 0.03 (< 0.04) ng/mL - ABG Interpretation ABG results: PT/INR, D-dimer PT 12.4 Seconds (9.4-12.1) H 06/03/18 06:27 - Impressions Impressions Lumbar Spine X-Ray 06/03/18 00:00 IMPRESSION: 1. Expected new postoperative changes at L4 and L5 as above. 2. Minimal to mild lumbar spine degenerative changes. 3. Bony demineralization. D/ / Rufino Thornton MD / Rufino Thornton MD Interpreting Provider: Rufino Thornton MD Consult Discharge Plan - Plan Referrals: Heron Yepez MD [Primary Care Provider] -
--- NOTE | 2018-06-03 17:12 | Cardiology Consult Note ---
Date of Encounter: 06/03/18 Time of Encounter: 17:09 Assessment and Plan (1) Chest pain Current Visit: Yes Status: Acute Chest pain currently resolved with improving blood pressure. Risks benefits and alternatives of a left heart catheterization discussed with the patient in detail and she is agreed not to proceed with a left heart catheterization at this time. Her risk of bleeding is significant with her immediate back surgery. If she has further chest pain or worsening hemodynamics/cardiac enzymes will reconsider and reevaluate left heart catheterization. Aspirin/ heparin to be started when safe from her recent surgery perspective Qualifiers: Chest pain type: unspecified Qualified Code(s): R07.9 - Chest pain, unspecified Discussion w patient/family: The assessment and plan as outlined above was discussed with the patient and/or family members who expressed understanding and agreement. All questions were answered. Thank you for involving us in the care of your patient. Please call with any questions. History of Present Illness Consult date: 06/03/18 Consult reason: Chest pain post op Chief complaint: chest pain History of present illness: Ms. Steven is a 77 year old female with history of coronary artery disease status post PCI to her circumflex with nonobstructive disease involving the nondominant RCA and LAD. Patient has a preserved ejection fraction on echocardiogram with excellent optional capacity and exercise capacity as documented on recent cardiology consult. Patient apparently became hypotensive requiring Natan-Synephrine and volume expansion intraoperatively. Patient currently with a systolic blood pressure of 80 mmHg initially complaining of chest pain currently is not. She states her chest pain and throat pain have resolved completely. She currently complains of lower back pain only. Her systolic blood pressure is improving since admission to PACU. Initial EKG showed significant ST depressions suggestive of underlying ischemia which currently have improved as her blood pressure and symptoms also improved. We discussed the risks benefits of a left heart catheterization immediately postop and the risk of bleeding. Currently as she is chest pain-free with an improved EKG and no significant ST elevations her risk of complications with a left heart catheterization outweigh the benefit. If the patient has further chest pain or has worsening or escalating cardiac enzymes we may consider a left heart catheter at that time. Patient understands her risks and benefits along with the alternatives and has agreed with the above plan. Past Med Surg Social Fam HX - Past Medical History Medical history: coronary artery disease, CVA, hypertension Additional medical history: Brain Bleed Psychiatric history: anxiety - Past Surgical History Additional surgical history: cardiac stent. Neck Surgery. Bilateral Carpal Tunnel - Social History Smoking Status: Current every day smoker Packs per day: 1 Smokeless Tobacco Status: No Alcohol use: none Drug use: none Medications and Allergies ALPRAZolam [Xanax 1 MG Tablet] 1 mg PO QPM PRN 05/29/18 [History] Albuterol Sulfate [Ventolin Hfa] 1 puff IH Q4H PRN 05/29/18 [History] Aspirin Enteric Coated [Aspirin EC] 81 mg PO QAM 05/29/18 [History] Cholecalciferol (D-3) [Vitamin D] 2,000 unit PO QPM 05/29/18 [History] Clopidogrel [Plavix] 75 mg PO QAM 05/29/18 [History] Furosemide [Lasix] 40 mg PO QAM 05/29/18 [History] Gabapentin [Neurontin] 300 mg PO QPM 05/29/18 [History] Lisinopril [Zestril] 20 mg PO QPM 05/29/18 [History] Metoprolol XL (24 HR) Succ [Toprol XL] 75 mg PO QAM 05/29/18 [History] Rosuvastatin [Crestor] 40 mg PO QPM 05/29/18 [History] Tramadol HCl [Ultram] 100 mg PO TID PRN 05/29/18 [History] 3 Allergy/AdvReac Type Severity Reaction Status Date / Time No Known Allergies Allergy Verified 05/29/18 20:57 All Systems Review: The remainder of the systems were reviewed and are negative Physical Examination Vital Signs, Last 4 Hours Temp Pulse Resp BP Pulse Ox 06/03/18 16:24 97.7 F 94 18 93/56 100 06/03/18 16:04 97.7 F 96 18 87/62 100 06/03/18 15:54 97.7 F 95 18 99/60 100 06/03/18 15:44 99.2 F 93 18 105/62 100 06/03/18 15:34 99.2 F 93 18 87/54 100 06/03/18 15:24 99.2 F 96 18 78/57 95 06/03/18 15:14 98.7 F 90 18 81/52 100 06/03/18 15:04 98.7 F 90 18 77/54 100 06/03/18 14:54 98.1 F 86 18 68/47 100 06/03/18 14:44 98.1 F 93 18 66/42 100 General: Conversant, No Apparent Distress HEENT: Atraumatic, Normocephaly, Mucus Membranes Moist Neck: No JVD, Normal carotid pulses Cardiac: Reg Rate and Rhythm, Normal S1 and S2, No Murmur Lungs: Normal Breath Sounds, No Wheeze, Rales, Rhonchi Neuro: Alert and responsive, No focal deficits noted Abdomen: Soft, Non-Tender Skin: No rashes noted on visualized skin Musculoskeletal: No Chest Wall Tenderness Extremities: No Clubbing, No Cyanosis, No Edema, Normal Pulses Results 06/03/18 15:44 06/03/18 15:44 Lab Results 06/03/18 06/03/18 06/03/18 06:27 06:27 06:27 WBC 14.1 H Hgb 14.4 Hct 43.3 Plt Count 386 INR 1.1 APTT 28.0 Sodium 138 Potassium 3.7 Chloride 102 Carbon Dioxide 28 BUN 25 H Creatinine 1.06 Glucose 164 H Calcium 9.3 Troponin I 06/03/18 06/03/18 15:44 15:44 WBC 10.4 Hgb 11.1 L D Hct 33.7 L Plt Count 262 INR APTT Sodium 140 Potassium 3.8 Chloride 105 Carbon Dioxide 24 BUN 22 Creatinine 1.02 Glucose 180 H Calcium 8.5 L Troponin I < 0.03 Consult Discharge Plan - Plan Referrals: Heron Yepez MD [Primary Care Provider] -
[2018-06-03] MEDS ORDERED: Acetaminophen 325 MG TABLET PO PRN ×2 (17:33→21:38)
[2018-06-03] MEDS ORDERED: *HR* HYDROcodone/Acet 5/325 mg TABLET PO PRN (17:33)
[2018-06-03] MEDS ORDERED: *HR* OxyCODONE Immed Rel 5 MG TABLET PO PRN (17:33)
[2018-06-03] MEDS ORDERED: Cholecalciferol (D-3) 1,000 UNIT TABLET PO SCH (18:00)
[2018-06-03] MEDS: Ringers Solution, Lactated 1,000 ML IVC SCH ×2 (18:00→19:24)
[2018-06-03] MEDS ORDERED: Melatonin 3 MG TABLET PO PRN (21:30)
[2018-06-03] MEDS ORDERED: ALPRAZolam 1 MG TABLET PO SCH (21:30)
[2018-06-03] MEDS ORDERED: ALPRAZolam 1 MG TABLET PO ONE (21:44)
[2018-06-03] MEDS: Melatonin 3 MG TABLET PO PRN (22:22)
[2018-06-04 01:35] LABS: Basophils % 0.2 %; Hematocrit 31.9 % (35.3-44.9); Hemoglobin 10.6 g/dL (11.5-15.4); Immature Granulocytes % 0.4 % (0-4); Lymphocytes # 0.4 K/mcL (0.6-4.6); Lymphocytes % 8.7 %; Mean Corpuscular HGB Conc 33.2 g/dL (31.6-35.5); Mean Corpuscular Hemoglobin 28.3 pg (28.0-33.3); Mean Corpuscular Volume 85.3 fL (83.0-100.0); Monocytes # 0.3 K/mcL (0.0-1.3); Platelet Count 232 K/mcL (140-400); Red Blood Count 3.74 M/mcL (3.82-4.97); Red Cell Distribution Width 13.9 % (11.5-14.5); Segmented Neutrophils % 83.7 %
[2018-06-04 01:51] LABS: Neutrophils # 3.9 K/mcL (1.6-8.9)
[2018-06-04 01:54] LABS: BUN/Creatinine Ratio 19 (6-26); Blood Urea Nitrogen 18 mg/dL (8-23); Calcium 8.7 mg/dL (8.6-10.3); Carbon Dioxide 26 mEq/L (23-29); Chloride 105 mEq/L (98-107); Glucose 184 mg/dL (70-105); Osmolality,Calculated 297 (280-300); Sodium 140 mEq/L (136-145); eGFR For African Americans > 60 (> 60); eGFR For Non-African Americans 56 (> 60)
[2018-06-04] MEDS: *HR* OxyCODONE Immed Rel 5 MG TABLET PO PRN ×3 (02:26→18:26)
--- NOTE | 2018-06-04 09:04 | Internal Med Progress Note ---
Date of Encounter: 06/04/18 Time of Encounter: 09:02 - Assessment and plan (1) Low back pain radiating to both legs Current Visit: Yes Status: Acute Assessment and plan: Presented with low back pain radiating down bilateral legs. Had neurological deficits with left lower extremity numbness, weakness, and left foot drop. Lumbar spine x-ray demonstrated degenerative grade 1 anteriolithesis L4-L5. Lumbar spine MRI revealed severe spinal canal stenosis at L4-L5 and mild spinal canal stenosis at L3-L4. Orthopedics consulted; appreciate input. She is POD # 1 s/p posterior lumbar interbody fusion of L4-L5. Pain control per orthopedic surgery. Will start PT/OT once cleared by orthopedic surgery. Will defer restarting aspirin, plavix, and heparin to orthopedic surgery when bleeding risk reduced. (2) Lumbar stenosis with neurogenic claudication Current Visit: Yes Status: Acute Assessment and plan: Management as per above. (3) History of CVA (cerebrovascular accident) Current Visit: Yes Status: Chronic Assessment and plan: Will restart aspirin and plavix once bleeding risk reduced and cleared by orthopedic surgery. (4) Hypertension Current Visit: Yes Status: Chronic Assessment and plan: Recent hypotension; now improving. Holding home medications for now. Will add IV hydralazine PRN. Will restart home medications once BP goes up. Qualifiers: Hypertension type: essential hypertension Qualified Code(s): I10 - Essential (primary) hypertension (5) COPD (chronic obstructive pulmonary disease) Current Visit: Yes Status: Chronic Assessment and plan: Start albuterol neb PRN SOB. Qualifiers: COPD type: unspecified COPD Qualified Code(s): J44.9 - Chronic obstructive pulmonary disease, unspecified (6) Fall Current Visit: Yes Status: Acute Assessment and plan: Will start PT/OT once cleared by orthopedic surgery. Qualifiers: Encounter type: initial encounter Qualified Code(s): W19.XXXA - Unspecified fall, initial encounter (7) Tobacco abuse counseling Current Visit: Yes Status: Chronic Assessment and plan: Current smoker and was adamant that she was not interested in quitting smoking. Discussed risks of smoking and benefits of cessation. (8) CAD (coronary artery disease) Current Visit: Yes Status: Chronic Assessment and plan: Will restart home medications once BP improves and bleeding risk reduced as determined by orthopedic surgery. Qualifiers: Coronary Disease-Associated Artery/Lesion type: [place] artery [place] vs. transplanted heart: [place] heart Associated angina: without angina Qualified Code(s): I25.10 - Atherosclerotic heart disease of [place] coronary artery without angina pectoris (9) Chest pain Current Visit: Yes Status: Resolved Assessment and plan: Resolved. Cardiology consulted; appreciate input. Zigzag Topstitcher discussed risks and benefits as well as alternatives of LHC and patient does not wish to proceed with LHC at this time. Will restart aspirin, plavix, and heparin once cleared by orthopedic surgery when post-operative bleeding risk reduced. Qualifiers: Chest pain type: unspecified Qualified Code(s): R07.9 - Chest pain, unspecified (10) Hypotension Current Visit: Yes Status: Resolved Assessment and plan: Medication-induced hypotension status post surgery. Now resolved. Normotensive at this time. Will continue to hold home anti-hypertensives for now. Will add IV hydralazine PRN for now. Will restart home medications once BP goes up. Qualifiers: Hypotension type: other hypotension type Qualified Code(s): I95.89 - Other hypotension (11) DVT prophylaxis Current Visit: Yes Status: Acute Assessment and plan: SCDs for now. Will defer starting heparin to orthopedic surgery once bleeding risk reduced. - Time Spent With Patient Total time spent is greater than 50% in coordination of care (as documented) at patient's floor/unit and/or counseling patient: less than 15 minutes - Subjective Interval history: Patient had no acute events overnight. Nursing staff reports some abdominal discomfort this AM. Orthopedics changed to clear liquid diet. She tells me that she is still having some back pain; I advised her to ask for pain medication that is ordered. She denies any more chest pain, except some discomfort from coughing. She denies fever, chills, SOB, nausea, vomiting, changes in bladder, or changes in bowels. She has no other complaints at this time. - Constitutional Vitals: Temp Pulse Resp BP Pulse Ox 98.3 F 101 16 148/73 96 06/04/18 06:35 06/04/18 06:35 06/04/18 06:35 06/04/18 06:35 06/04/18 06:35 General appearance: Present: cooperative, A&O X 3, pleasant, no acute distress, answers questions appropriately - Respiratory Respiratory exam: Present: CTAB. Absent: accessory muscle use, rales, rhonchi, wheezes Additional comments: Normal WOB - Cardiovascular Cardiovascular exam: Present: RRR, +S1, +S2. Absent: diastolic murmur, gallop, rubs, systolic murmur Additional comments: No BLE edema - GI/Abdominal GI/Abdominal exam: Present: normal bowel sounds, soft. Absent: distended, hepatomegaly, mass, splenomegaly, tenderness - Psychiatric Psychiatric exam: Present: normal affect, normal mood. Absent: agitated, anxious, depressed - Skin Skin exam: Present: dry, warm. Absent: cyanosis, erythema, rash Internal Medicine: Result - Labs CBC & Chem 7: 06/04/18 01:14 06/04/18 01:14 Labs: Short CBC 06/04/18 Range/Units 01:14 WBC 4.7 D (4.3-11.1) K/mcL Hgb 10.6 L (11.5-15.4) g/dL Hct 31.9 L (35.3-44.9) % Plt Count 232 (140-400) K/mcL Neutrophils # 3.9 (1.6-8.9) K/mcL BMP 06/04/18 01:14 Sodium 140 Potassium 4.0 Chloride 105 Carbon Dioxide 26 BUN 18 Creatinine 0.97 Glucose 184 H Calcium 8.7 - ABG Interpretation ABG results: PT/INR, D-dimer PT 12.4 Seconds (9.4-12.1) H 06/03/18 06:27 - VTE Documentation of Mechanical Device: Intermittent pneumatic compression device Consult Discharge Plan - Plan Referrals: Heron Yepez MD [Primary Care Provider] -
[2018-06-04] MEDS ORDERED: Albuterol 2.5 MG/3 ML NEBULIZER IH PRN (09:12)
--- NOTE | 2018-06-04 11:15 | Orthopedics Progress Note ---
Date of Encounter: 06/04/18 Time of Encounter: 08:30 - Assessment and Plan (1) Status post lumbar spinal fusion Current Visit: Yes Status: Acute (2) Spondylolisthesis Current Visit: Yes Status: Chronic Qualifiers: Spinal region: lumbar Qualified Code(s): M43.16 - Spondylolisthesis, lumbar region (3) Lumbar stenosis Current Visit: Yes Status: Chronic Qualifiers: Neurogenic claudication status: with neurogenic claudication Qualified Code (s): M48.062 - Spinal stenosis, lumbar region with neurogenic claudication (4) Left leg weakness Current Visit: Yes Status: Chronic (5) Left foot drop Current Visit: Yes Status: Chronic Subjective Principal diagnosis: Spondylolisthesis, lumbar stenosis, foot drop Interval history: Patient is POD#1 status post Date of procedure: 06/03/18 Pre-op diagnosis: Spondylolisthesis, lumbar stenosis, left foot drop Post-op diagnosis: same Operation/Findings: Posterior lumbar interbody fusion L4-L5 The patient c/o pain however she states that she is feeling better than prior to surgery. She states that she has improved motion of the LLE and is able to get into a comfortable position in order to rest. Labwork reviewed. Afebrile vital signs are stable. Patient laying supine in bed. Neurovascularly intact with regard to bilateral lower extremities - improved dorsiflexion of the left ankle now 3/5 strength with full sensation. Weakness to the LLE continues however patient states this is appx her baseline. Assessment: Stable postoperative. Plan: Reviewed postoperative restrictions and precautions. No bending or twisting at waist. No lifting greater than 5-10lbs. Patient verbalized understanding. Will request patient receives LSO brace to apply with ambulation and activity - does not need to apply with sitting or laying. Mobilize with therapy - encouraged patient to participate; will consider AFO if at risk of falling with continued left foot drop. Continue analgesics as needed - patient gets chronic Tramadol from Dr. Yepez - will plan to hold this upon discharge for short term script from ortho spine surgical team. Discharge planning - awaiting therapy/hospitalist recommendations Radiographs pending - will obtain on POD#3. Objective Vital signs: Vital Signs Temp Pulse Resp BP Pulse Ox 06/04/18 06:35 98.3 F 101 16 148/73 96 06/04/18 04:20 98.5 F 105 15 146/64 95 07/11/18 00:01 98.6 F 91 17 162/67 98 06/03/18 22:00 93 18 144/69 99 06/03/18 21:00 96 18 153/63 99 06/03/18 20:45 98.0 F 06/03/18 20:00 98 18 88/56 99 06/03/18 19:00 98 14 85/67 98 06/03/18 18:04 100 14 98/62 96 06/03/18 17:07 98 14 92/68 96 06/03/18 16:24 97.7 F 94 18 93/56 100 06/03/18 16:04 97.7 F 96 18 87/62 100 06/03/18 15:54 97.7 F 95 18 99/60 100 Intake and Output 06/03/18 06/04/18 06/04/18 23:59 07:59 15:59 Intake Total 1100 / 1100 Output Total 750 / 750 1250 / 1250 Balance 350 / 350 -1250 / -1250 Intake: IV Fluids 1000 / 1000 Lactated Ringers 1,000 ML @ 100 1000 / 1000 mls/hr IVC .Q10H ELE Rx#: [id number] Oral 100 / 100 Output: Urine Amount (Catheter) 350 / 350 Catheter 400 / 400 1250 / 1250 Other: Blood Glucose* 116 - Labs CBC & BMP: 06/04/18 01:14 06/04/18 01:14 Labs: Abnormal lab results RBC 3.74 M/mcL (3.82-4.97) L 06/04/18 01:14 Hgb 10.6 g/dL (11.5-15.4) L 06/04/18 01:14 Hct 31.9 % (35.3-44.9) L 06/04/18 01:14 Lymphocytes # 0.4 K/mcL (0.6-4.6) L 06/04/18 01:14 PT 12.4 Seconds (9.4-12.1) H 06/03/18 06:27 Est GFR (Non-Af Amer) 56 (> 60) L 06/04/18 01:14 Glucose 184 mg/dL (70-105) H 06/04/18 01:14 POC Glucose 179 mg/dL (70-99) H 06/03/18 16:35 - VTE Documentation of Mechanical Device: Intermittent pneumatic compression device Consult Discharge Plan - Plan Referrals: Heron Yepez MD [Primary Care Provider] - Taina Nassar PAC [Physician Applications Support Lead] - 06/17/18 2:00 pm
[2018-06-04] MEDS: *HR* Heparin 5,000 UNIT/ML VIAL SQ SCH ×2 (13:16→18:27)
[2018-06-04] MEDS: Aspirin 81 MG TAB.CHEW PO SCH (13:16)
[2018-06-04] MEDS: *HR* HYDROcodone/Acet 5/325 mg TABLET PO PRN ×2 (13:19→21:08)
--- NOTE | 2018-06-04 17:31 | Electrocardiograph Report ---
[place] [employer] Test Date: 2018-06-03 Pat Name: Avis Steven Department: 101 Room: [facility] Gender: F Street Supervisor: : 1940 Requested By: Car Pickens Order Number: [id number] Reading MD: Wesley Gonzalez Measurements Intervals [place] Rate: 95 P: 78 UT: 169 QRS: 12 QRSD: 84 T: 257 QT: 325 QTc: 378 Interpretive Statements SINUS RHYTHM LOW QRS VOLTAGE IN PRECORDIAL LEADS POSSIBLE RIGHT VENTRICULAR CONDUCTION DELAY ST DEVIATION AND MODERATE T-WAVE ABNORMALITY, CONSIDER ANTEROLATERAL ISCHEMIA ST DEVIATION AND MODERATE T-WAVE ABNORMALITY, CONSIDER INFERIOR ISCHEMIA Electronically Signed On 06-04-2018 17:29:55 EDT by Wesley Gonzalez
[2018-06-04] MEDS: Cholecalciferol (D-3) 1,000 UNIT TABLET PO SCH (18:27)
[2018-06-04] MEDS: Melatonin 3 MG TABLET PO PRN (21:08)
[2018-06-05 01:53] LABS: Basophils # 0.1 K/mcL (0.0-0.2); Basophils % 0.6 %; Eosinophils % 0.5 %; Hematocrit 29.6 % (35.3-44.9); Hemoglobin 9.5 g/dL (11.5-15.4); Immature Granulocytes % 0.2 % (0-4); Lymphocytes # 2.3 K/mcL (0.6-4.6); Lymphocytes % 27.1 %; Mean Corpuscular HGB Conc 32.1 g/dL (31.6-35.5); Mean Corpuscular Hemoglobin 27.4 pg (28.0-33.3); Mean Corpuscular Volume 85.3 fL (83.0-100.0); Mean Platelet Volume 11.5 fL (9.4-12.4); Monocytes % 11.4 %; Neutrophils # 5.2 K/mcL (1.6-8.9); Platelet Count 218 K/mcL (140-400); Red Blood Count 3.47 M/mcL (3.82-4.97); Red Cell Distribution Width 14.3 % (11.5-14.5); Segmented Neutrophils % 60.2 %
[2018-06-05 02:09] LABS: BUN/Creatinine Ratio 19 (6-26); Blood Urea Nitrogen 15 mg/dL (8-23); Calcium 8.4 mg/dL (8.6-10.3); Carbon Dioxide 27 mEq/L (23-29); Chloride 106 mEq/L (98-107); Glucose 146 mg/dL (70-105); Osmolality,Calculated 291 (280-300); Potassium 3.5 mEq/L (3.5-5.1); Sodium 139 mEq/L (136-145); eGFR For African Americans > 60 (> 60); eGFR For Non-African Americans > 60 (> 60)
[2018-06-05] MEDS: *HR* HYDROcodone/Acet 5/325 mg TABLET PO PRN ×2 (04:21→10:55)
[2018-06-05] MEDS: *HR* Heparin 5,000 UNIT/ML VIAL SQ SCH ×2 (05:37→18:23)
--- NOTE | 2018-06-05 06:44 | Electrocardiograph Report ---
[address] [address] Test Date: 2018-06-03 Pat Name: Avis Steven Department: 106 Room: [facility] Gender: F Rfp Writer: : 1940 Requested By: Malachi Messina Order Number: [id number] Reading MD: Aaron Coon Measurements Intervals [place] Rate: 96 P: 75 ME: 155 QRS: 13 QRSD: 105 T: 36 QT: 381 QTc: 434 Interpretive Statements SINUS RHYTHM WITH OCCASIONAL ECTOPIC PREMATURE COMPLEXES LOW QRS VOLTAGE IN PRECORDIAL LEADS Electronically Signed On 06-05-2018 6:42:47 EDT by Aaron Coon
--- NOTE | 2018-06-05 06:47 | Electrocardiograph Report ---
[address] [address] Test Date: 2018-06-03 Pat Name: Avis Steven Department: 109 Room: [facility] Gender: F Echocardiography Radiology Technologist: : 1940 Requested By: Whitley Browne Order Number: [id number] Reading MD: Aaron Coon Measurements Intervals [place] Rate: 98 P: 77 GA: 151 QRS: 2 QRSD: 98 T: 31 QT: 363 QTc: 418 Interpretive Statements SINUS RHYTHM LOW QRS VOLTAGE IN PRECORDIAL LEADS Electronically Signed On 06-05-2018 6:46:04 EDT by Aaron Coon
[2018-06-05] MEDS: *HR* OxyCODONE Immed Rel 5 MG TABLET PO PRN ×3 (06:51→22:19)
--- NOTE | 2018-06-05 08:49 | Event Note ---
Date of Encounter: 06/05/18 Time of Encounter: 08:30 Attempted to see patient - away for testing.
[2018-06-05] MEDS: Aspirin 81 MG TAB.CHEW PO SCH (09:38)
[2018-06-05] MEDS: Ringers Solution, Lactated 1,000 ML IVC SCH ×2 (13:02→13:03)
[2018-06-05] MEDS ORDERED: Bisacodyl 10 MG RECTAL SUPPOSITORY RC STA (15:33)
[2018-06-05] MEDS: Cholecalciferol (D-3) 1,000 UNIT TABLET PO SCH (18:23)
--- NOTE | 2018-06-05 18:50 | Internal Med Progress Note ---
Date of Encounter: 06/05/18 Time of Encounter: 18:48 - Assessment and plan (1) Low back pain radiating to both legs Current Visit: Yes Status: Acute Assessment and plan: Presented with low back pain radiating down bilateral legs. Had neurological deficits with left lower extremity numbness, weakness, and left foot drop. Lumbar spine x-ray demonstrated degenerative grade 1 anteriolithesis L4-L5. Lumbar spine MRI revealed severe spinal canal stenosis at L4-L5 and mild spinal canal stenosis at L3-L4. Orthopedics consulted; appreciate input. She is POD # 2 s/p posterior lumbar interbody fusion of L4-L5. Pain control per orthopedic surgery. PT/OT started today; seems to have improving ambulation. SW working on inpatient acute rehab placement. (2) Lumbar stenosis with neurogenic claudication Current Visit: Yes Status: Acute Assessment and plan: Management as per above. (3) History of CVA (cerebrovascular accident) Current Visit: Yes Status: Chronic Assessment and plan: Continue home medications, including aspirin and plavix. (4) Hypertension Current Visit: Yes Status: Chronic Assessment and plan: Recent hypotension; now resolved. Restart home medications. Continue IV hydralazine PRN. Qualifiers: Hypertension type: essential hypertension Qualified Code(s): I10 - Essential (primary) hypertension (5) COPD (chronic obstructive pulmonary disease) Current Visit: Yes Status: Chronic Assessment and plan: Continue albuterol neb PRN SOB. Qualifiers: COPD type: unspecified COPD Qualified Code(s): J44.9 - Chronic obstructive pulmonary disease, unspecified (6) Fall Current Visit: Yes Status: Acute Assessment and plan: PT/OT consulted. IMAN working on inpatient acute rehab placement. Qualifiers: Encounter type: initial encounter Qualified Code(s): W19.XXXA - Unspecified fall, initial encounter (7) Tobacco abuse counseling Current Visit: Yes Status: Chronic Assessment and plan: Current smoker and was adamant that she was not interested in quitting smoking. Discussed risks of smoking and benefits of cessation. (8) CAD (coronary artery disease) Current Visit: Yes Status: Chronic Assessment and plan: Restarted home mediations today. Qualifiers: Coronary Disease-Associated Artery/Lesion type: [place] artery [place] vs. transplanted heart: [place] heart Associated angina: without angina Qualified Code(s): I25.10 - Atherosclerotic heart disease of [place] coronary artery without angina pectoris (9) Chest pain Current Visit: Yes Status: Resolved Assessment and plan: Resolved. Cardiology consulted; appreciate input. Metal Burrer discussed risks and benefits as well as alternatives of LHC and patient does not wish to proceed with LHC at this time. Continue aspirin, plavix, and heparin. Restarted home medications today. Qualifiers: Chest pain type: unspecified Qualified Code(s): R07.9 - Chest pain, unspecified (10) Hypotension Current Visit: Yes Status: Resolved Assessment and plan: Resolved. Plan as per above. Qualifiers: Hypotension type: other hypotension type Qualified Code(s): I95.89 - Other hypotension (11) DVT prophylaxis Current Visit: Yes Status: Acute Assessment and plan: Continue SQ heparin. - Time Spent With Patient Total time spent is greater than 50% in coordination of care (as documented) at patient's floor/unit and/or counseling patient: less than 15 minutes - Subjective Interval history: Patient had no acute events overnight. She is having some gas and no BM in a few days. She states that pain is improved. She worked with therapy today and it went well. Plan now is to go to inpatient acute rehab facility. She denies chest pain. She denies fever, chills, SOB, nausea, or vomiting. She has no other complaints at this time. - Constitutional Vitals: Temp Pulse Resp BP Pulse Ox 97.9 F 99 16 178/84 97 06/05/18 16:05 06/05/18 16:05 06/05/18 16:05 06/05/18 16:05 06/05/18 16:05 General appearance: Present: cooperative, A&O X 3, pleasant, no acute distress, answers questions appropriately - Respiratory Respiratory exam: Present: CTAB. Absent: accessory muscle use, rales, rhonchi, wheezes Additional comments: Normal WOB - Cardiovascular Cardiovascular exam: Present: RRR, +S1, +S2. Absent: diastolic murmur, gallop, rubs, systolic murmur Additional comments: No BLE edema - GI/Abdominal GI/Abdominal exam: Present: normal bowel sounds, soft. Absent: distended, hepatomegaly, mass, splenomegaly, tenderness - Psychiatric Psychiatric exam: Present: normal affect, normal mood. Absent: agitated, anxious, depressed - Skin Skin exam: Present: dry, intact, warm. Absent: cyanosis, rash Internal Medicine: Result - Labs CBC & Chem 7: 06/05/18 01:38 06/05/18 01:38 Labs: Short CBC 06/05/18 Range/Units 01:38 WBC 8.6 D (4.3-11.1) K/mcL Hgb 9.5 L (11.5-15.4) g/dL Hct 29.6 L (35.3-44.9) % Plt Count 218 (140-400) K/mcL Neutrophils # 5.2 (1.6-8.9) K/mcL BMP 06/05/18 01:38 Sodium 139 Potassium 3.5 Chloride 106 Carbon Dioxide 27 BUN 15 Creatinine 0.80 Glucose 146 H Calcium 8.4 L - ABG Interpretation ABG results: PT/INR, D-dimer PT 12.4 Seconds (9.4-12.1) H 06/03/18 06:27 - Impressions Impressions Lumbar Spine X-Ray 06/05/18 09:00 IMPRESSION: 1. Expected postoperative changes at L4 and L5 as above. 2. Minimal to mild lumbar spine degenerative changes. 3. Bony demineralization. D/ / Rufino Thornton MD / Rufino Thornton MD Interpreting Provider: Rufino Thornton MD Consult Discharge Plan - Plan Referrals: Heron Yepez MD [Primary Care Provider] - Taina Nassar PAC [Physician Nurse First Aid] - 06/17/18 2:00 pm
[2018-06-05] MEDS ORDERED: Lisinopril 20 MG TABLET PO SCH (19:15)
[2018-06-06] MEDS: *HR* OxyCODONE Immed Rel 5 MG TABLET PO PRN (04:44)
[2018-06-06] MEDS: *HR* Heparin 5,000 UNIT/ML VIAL SQ SCH (06:27)
[2018-06-06] MEDS ORDERED: *HR* OxyCODONE Immed Rel 5 MG TABLET PO PRN (08:55)
[2018-06-06] MEDS ORDERED: Acetaminophen 325 MG TABLET PO PRN (08:56)
[2018-06-06] MEDS ORDERED: tiZANidine 4 MG TABLET PO PRN (08:56)
--- NOTE | 2018-06-06 08:59 | Orthopedics Progress Note ---
Date of Encounter: 06/06/18 Time of Encounter: 08:45 - Assessment and Plan (1) Status post lumbar spinal fusion Current Visit: Yes Status: Acute (2) Spondylolisthesis Current Visit: Yes Status: Chronic Qualifiers: Spinal region: lumbar Qualified Code(s): M43.16 - Spondylolisthesis, lumbar region (3) Lumbar stenosis Current Visit: Yes Status: Chronic Qualifiers: Neurogenic claudication status: with neurogenic claudication Qualified Code (s): M48.062 - Spinal stenosis, lumbar region with neurogenic claudication (4) Left leg weakness Current Visit: Yes Status: Chronic (5) Left foot drop Current Visit: Yes Status: Chronic Subjective Principal diagnosis: Spondylolisthesis, lumbar stenosis, foot drop Interval history: Patient is POD#3 status post Date of procedure: 06/03/18 Pre-op diagnosis: Spondylolisthesis, lumbar stenosis, left foot drop Post-op diagnosis: same Operation/Findings: Posterior lumbar interbody fusion L4-L5 The patient states she is feeling much better and less pain. She states that she has improved motion of the LLE and is able to get into a comfortable position in order to rest. She is sitting in chair eating breakfast. Labwork reviewed. Afebrile vital signs are stable. Neurovascularly intact with regard to bilateral lower extremities - improved dorsiflexion of the left ankle now 4/5 strength with full sensation. Weakness to the LLE continues however patient states this is appx her baseline. Assessment: Stable postoperative. Plan: Reviewed postoperative restrictions and precautions. No bending or twisting at waist. No lifting greater than 5-10lbs. Patient verbalized understanding. Will request patient receives LSO brace to apply with ambulation and activity - does not need to apply with sitting or laying. Mobilize with therapy - encouraged patient to participate; will consider AFO if at risk of falling with continued left foot drop. Continue analgesics as needed - patient gets chronic Tramadol from Dr. Yepez - will plan to hold this upon discharge for short term script from ortho spine surgical team. Discharge planning - recommending inpatient rehab per therapy - agree with this recommendation. Radiographs reviewed and appropriate. Objective Vital signs: Vital Signs Temp Pulse Resp BP Pulse Ox 06/06/18 06:59 98.6 F 107 18 135/73 96 06/05/18 23:22 98.9 F 118 12 128/78 97 06/05/18 19:05 98.8 F 99 15 146/74 99 06/05/18 16:05 97.9 F 99 16 178/84 97 06/05/18 11:16 98.4 F 101 18 169/75 97 06/05/18 09:45 94 Intake and Output 06/05/18 06/06/18 06/06/18 23:59 07:59 15:59 Other: Meal Dinner Percent of Meal Consumed 0% Stool Size Moderate Moderate Stool Consistency liquid liquid # Voids 1 3 # Bowel Movements 1 2 Weight 68.4 kg Blood Glucose* 138 147 Patient Weight 06/06/18 23:59 Weight 68.4 kg - Labs CBC & BMP: 06/05/18 01:38 06/05/18 01:38 Labs: Abnormal lab results RBC 3.47 M/mcL (3.82-4.97) L 06/05/18 01:38 Hgb 9.5 g/dL (11.5-15.4) L 06/05/18 01:38 Hct 29.6 % (35.3-44.9) L 06/05/18 01:38 MCH 27.4 pg (28.0-33.3) L 06/05/18 01:38 PT 12.4 Seconds (9.4-12.1) H 06/03/18 06:27 Glucose 146 mg/dL (70-105) H 06/05/18 01:38 POC Glucose 145 mg/dL (70-99) H 06/05/18 11:43 Calcium 8.4 mg/dL (8.6-10.3) L 06/05/18 01:38 - VTE Documentation of Mechanical Device: Intermittent pneumatic compression device Consult Discharge Plan - Plan Additional Instructions: Follow up with acute rehab physician in 2-3 days after discharge. Recheck BMP and CBC (post-op anemia) at that time. Follow up with orthopedic surgery as directed. Referrals: Heron Yepez MD [Primary Care Provider] - Taina Nassar PAC [Physician Formula Technician] - 06/17/18 2:00 pm Prescriptions: OxyCODONE Immed Rel [Roxicodone 5 MG] 5 mg PO Q6HR PRN 7 Days #28 tablet PRN Reason: Severe Pain ALPRAZolam [Xanax 1 MG Tablet] 1 mg PO QPM PRN 4 Days #4 tablet PRN Reason: Anxiety Docusate [Colace] 100 mg PO BID 4 Days #8 capsule Gabapentin [Neurontin] 300 mg PO QPM 4 Days #4 capsule Tizanidine HCl 2 mg PO QID PRN 7 Days #28 tablet PRN Reason: Muscle Pain
[2018-06-06] MEDS ORDERED: Metoprolol XL (24 HR) Succ 50 MG TAB.ER.24H PO SCH (09:00)
[2018-06-06] MEDS: Aspirin 81 MG TAB.CHEW PO SCH (10:01)
[2018-06-06] MEDS ORDERED: *HR* HYDROcodone/Acet 5/325 mg TABLET PO PRN (10:27)
[2018-06-06] MEDS: Ringers Solution, Lactated 1,000 ML IVC SCH (10:45)
--- NOTE | 2018-06-06 13:13 | Spine Progress Note ---
Date of Encounter: 06/05/18 Time of Encounter: 13:05 - Assessment and Plan (1) Lumbar stenosis with neurogenic claudication Current Visit: Yes Status: Acute (2) Left foot drop Current Visit: Yes Status: Chronic On exam she is sitting on the side of the bed in mild distress secondary to back pain. Afebrile vital signs stable. She has limitation with forward flexion and extension of the lumbar spine. Extension causes pain into the buttocks and legs. Her hips move symmetrically. There is no clonus. She has significant weakness in dorsiflexion of the left foot which is 2 on a motor scale consistent with left foot drop. Her left foot/ankle is inverted. She has weakness in the EHL and left quad is well. Pulses are intact. She is otherwise neurovascularly intact with regard to her bilateral lower extremities. MRI of the lumbar spine reveals a grade 1 spondylolisthesis at L4-L5. She has associated severe stenosis at this level. There are multilevel degenerative changes in the lumbar spine. Impression: 1) spondylolisthesis L4-L5 2) severe lumbar stenosis 3) left foot drop 4) focal motor deficit Plan: Due to her concerning weakness and risk for further or permanent neurologic injury I find it reasonable to consider surgery in the form of a posterior lumbar interbody fusion L4-L5. The patient will require medical optimization prior to surgery. Risks benefits possible complications and alternatives were discussed and the patient would like to proceed. (3) Focal motor deficit Current Visit: Yes Status: Acute Subjective Principal diagnosis: Spondylolisthesis, lumbar stenosis, foot drop Interval history: The patient is without complaints. Afebrile vital signs are stable. Incision is clean dry and intact. Her dorsiflexion weakness continues to improve. Assessment :stable. Plan mobilize ,continue analgesics, discharge planning. Objective Vital signs: Vital Signs Temp Pulse Resp BP Pulse Ox 06/06/18 10:58 98.2 F 101 18 116/70 97 06/06/18 10:12 96 06/06/18 06:59 98.6 F 107 18 135/73 96 06/05/18 23:22 98.9 F 118 12 128/78 97 06/05/18 19:05 98.8 F 99 15 146/74 99 06/05/18 16:05 97.9 F 99 16 178/84 97 Intake and Output 06/05/18 06/06/18 06/06/18 23:59 07:59 15:59 Intake Total 240 / 240 Balance 240 / 240 Intake: Oral 240 / 240 Other: Meal Dinner Breakfast Percent of Meal Consumed 0% 25% Stool Size Moderate Moderate Stool Consistency liquid liquid # Voids 1 3 # Bowel Movements 1 2 Weight 68.4 kg Blood Glucose* 138 147 155 Patient Weight 06/06/18 23:59 Weight 68.4 kg - Labs CBC & BMP: 06/05/18 01:38 06/05/18 01:38 Labs: Abnormal lab results RBC 3.47 M/mcL (3.82-4.97) L 06/05/18 01:38 Hgb 9.5 g/dL (11.5-15.4) L 06/05/18 01:38 Hct 29.6 % (35.3-44.9) L 06/05/18 01:38 MCH 27.4 pg (28.0-33.3) L 06/05/18 01:38 PT 12.4 Seconds (9.4-12.1) H 06/03/18 06:27 Glucose 146 mg/dL (70-105) H 06/05/18 01:38 POC Glucose 145 mg/dL (70-99) H 06/05/18 11:43 Calcium 8.4 mg/dL (8.6-10.3) L 06/05/18 01:38 Consult Discharge Plan - Plan Referrals: Heron Yepez MD [Primary Care Provider] - Taina Nassar PAC [Physician Nurse Healthcare Manager] - 06/17/18 2:00 pm Prescriptions: OxyCODONE Immed Rel [Roxicodone 5 MG] 5 mg PO Q6HR PRN 7 Days #28 tablet PRN Reason: Severe Pain Tizanidine HCl 2 mg PO QID PRN 7 Days #28 tablet PRN Reason: Muscle Pain
--- NOTE | 2018-06-06 15:01 | Discharge Summary ---
- NOTES TO OUTPATIENT PROVIDER Notes to Outpatient Provider: Follow up with acute rehab physician in 2-3 days after discharge. Recheck BMP and CBC (post-op anemia) at that time. Follow up with orthopedic surgery as directed. Date of Encounter: 06/06/18 Time of Encounter: 14:59 - Discharge Diagnosis (1) Low back pain radiating to both legs Priority: Primary Status: Acute (2) Lumbar stenosis with neurogenic claudication Priority: Secondary Status: Acute (3) History of CVA (cerebrovascular accident) Priority: Secondary Status: Chronic (4) Hypertension Priority: Secondary Status: Chronic Qualifiers: Hypertension type: essential hypertension Qualified Code(s): I10 - Essential (primary) hypertension (5) COPD (chronic obstructive pulmonary disease) Priority: Secondary Status: Chronic Qualifiers: COPD type: unspecified COPD Qualified Code(s): J44.9 - Chronic obstructive pulmonary disease, unspecified (6) Fall Priority: Secondary Status: Acute Qualifiers: Encounter type: initial encounter Qualified Code(s): W19.XXXA - Unspecified fall, initial encounter (7) Tobacco abuse counseling Priority: Secondary Status: Chronic (8) CAD (coronary artery disease) Priority: Secondary Status: Chronic Qualifiers: Coronary Disease-Associated Artery/Lesion type: [place] artery [place] vs. transplanted heart: [place] heart Associated angina: without angina Qualified Code(s): I25.10 - Atherosclerotic heart disease of [place] coronary artery without angina pectoris (9) Chest pain Priority: Secondary Status: Resolved Qualifiers: Chest pain type: unspecified Qualified Code(s): R07.9 - Chest pain, unspecified (10) Hypotension Priority: Secondary Status: Resolved Qualifiers: Hypotension type: other hypotension type Qualified Code(s): I95.89 - Other hypotension (11) DVT prophylaxis Priority: Secondary Status: Acute Hospital course: Ms. Steven is a 77 year old female admitted for low back pain radiating down bilateral legs, likely secondary to lumbar stenosis with neurogenic claudication. She had accompanying neurological deficits with left lower extremity numbness, weakness, and left foot drop. Lumbar spine x-ray demonstrated degenerative grade 1 anteriolithesis L4-L5. Lumbar spine MRI revealed severe spinal canal stenosis at L4-L5 and mild spinal canal stenosis at L3-L4. Orthopedic surgery was consulted. Patient experienced chest pain after admission. Cardiology was consulted. Chronometer Adjuster discussed risks and benefits as well as alternatives of LHC and patient does not wish to proceed with LHC at that time. After cardiac clearance, she was taken for posterior lumbar interbody fusion of L4-L5 by orthopedic surgery. She tolerated procedure well. Symptoms greatly improved post-op. She had some hypotension briefly post-op, which subsequently resolved by holding home anti- hypertensives. Cardiac medications, including aspirin, plavix, and heparin, were restarted post-op. PT/OT was consulted, and she did well. SW worked on inpatient acute rehab placement. Patient was accepted to [facility] for acute inpatient rehab. She will follow up with acute rehab physician there in 2 -3 days after discharged. Repeat BMP and CBC will be checked at that time. She will follow up with orthopedic surgery as directed. Patient has met maximum benefit of this hospitalization and will be discharged to [facility] acute rehab in stable condition. Discharge discussed with: patient, nurse - Time Spent with Patient Total time spent providing and/or coordinating discharge services: Greater than 30 minutes - Discharge Medications Prescriptions: OxyCODONE Immed Rel [Roxicodone 5 MG] 5 mg PO Q6HR PRN 7 Days #28 tablet PRN Reason: Severe Pain ALPRAZolam [Xanax 1 MG Tablet] 1 mg PO QPM PRN 4 Days #4 tablet PRN Reason: Anxiety Docusate [Colace] 100 mg PO BID 4 Days #8 capsule Gabapentin [Neurontin] 300 mg PO QPM 4 Days #4 capsule Tizanidine HCl 2 mg PO QID PRN 7 Days #28 tablet PRN Reason: Muscle Pain Home Medications: Albuterol Sulfate [Ventolin Hfa] 1 puff IH Q4H PRN 05/29/18 [History] Aspirin Enteric Coated [Aspirin EC] 81 mg PO QAM 05/29/18 [History] Cholecalciferol (D-3) [Vitamin D] 2,000 unit PO QPM 05/29/18 [History] Clopidogrel [Plavix] 75 mg PO QAM 05/29/18 [History] Furosemide [Lasix] 40 mg PO QAM 05/29/18 [History] Lisinopril [Zestril] 20 mg PO QPM 05/29/18 [History] Metoprolol XL (24 HR) Succ [Toprol Xl] 75 mg PO QAM 05/29/18 [History] Rosuvastatin [Crestor] 40 mg PO QPM 05/29/18 [History] ALPRAZolam [Xanax 1 MG Tablet] 1 mg PO QPM PRN 4 Days #4 tablet 06/06/18 [Rx] Aspirin 81 mg PO DAILY tab.chew 06/06/18 [Rx] Docusate [Colace] 100 mg PO BID 4 Days #8 capsule 06/06/18 [Rx] Gabapentin [Neurontin] 300 mg PO QPM 4 Days #4 capsule 06/06/18 [Rx] OxyCODONE Immed Rel [Roxicodone 5 MG] 5 mg PO Q6HR PRN 7 Days #28 tablet [Rx] Tizanidine HCl 2 mg PO QID PRN 7 Days #28 tablet 06/06/18 [Rx] Allergies/Adverse Reactions: 3 Allergy/AdvReac Type Severity Reaction Status Date / Time No Known Allergies Allergy Verified 05/29/18 20:57 Date of admission: 06/03/18 15:50 Primary care physician: Heron Yepez MD Consults: Orthopedic Surgery Cardiology Vascular Surgery Discharging clinician: Agusto French Anticipated date of discharge: 06/06/18 - Constitutional Vitals: Temp Pulse Resp BP Pulse Ox 98.2 F 101 18 116/70 97 06/06/18 10:58 06/06/18 10:58 06/06/18 10:58 06/06/18 10:58 06/06/18 10:58 General appearance: Present: cooperative, A&O X 3, pleasant, no acute distress, answers questions appropriately - Respiratory Respiratory exam: Present: CTAB. Absent: accessory muscle use, rales, rhonchi, wheezes Additional comments: Normal WOB - Cardiovascular Cardiovascular exam: Present: RRR, +S1, +S2. Absent: diastolic murmur, gallop, rubs, systolic murmur Additional comments: No BLE edema - GI/Abdominal GI/Abdominal exam: Present: normal bowel sounds, soft. Absent: distended, hepatomegaly, mass, splenomegaly, tenderness - Psychiatric Psychiatric exam: Present: normal affect, normal mood. Absent: agitated, anxious, depressed - Skin Skin exam: Present: dry, intact, warm. Absent: cyanosis, rash - Patient Status Disposition: Transfer Inpatient Rehab Fac Condition: Good Overall status at discharge: patient is progressing back to baseline - Discharge Instructions Follow Up With: Heron Yepez MD [Primary Care Provider] - Taina Nassar PAC [Physician Lace Cutter] - 06/17/18 2:00 pm Additional Instructions: Follow up with acute rehab physician in 2-3 days after discharge. Recheck BMP and CBC (post-op anemia) at that time. Follow up with orthopedic surgery as directed. - Diet and Activity Activity: as per physical therapy Diet: low fat, low cholesterol, low salt diet, other (Cardiac Diet)
--- NOTE | 2018-06-06 15:15 | Physician Discharge Referral ---
ExtendedCare Referral Info Transfer To: [facility] Acute Inpatient Rehabilitation Provider in Charge after Transfer: Other (Acute Rehab Physician) Institutional Level of Care: Skilled - Diagnosis (1) Low back pain radiating to both legs Priority: Primary Status: Acute (2) Lumbar stenosis with neurogenic claudication Priority: Secondary Status: Acute (3) History of CVA (cerebrovascular accident) Priority: Secondary Status: Chronic (4) Hypertension Priority: Secondary Status: Chronic (5) COPD (chronic obstructive pulmonary disease) Priority: Secondary Status: Chronic (6) Fall Priority: Secondary Status: Acute (7) Tobacco abuse counseling Priority: Secondary Status: Chronic (8) CAD (coronary artery disease) Priority: Secondary Status: Chronic (9) Chest pain Priority: Secondary Status: Resolved (10) Hypotension Priority: Secondary Status: Resolved (11) DVT prophylaxis Priority: Secondary Status: Acute Expected Duration of Placement: 4-6 weeks Prognosis: Good Aware of Diagnosis: Patient, Family Aware of Prognosis: Patient, Family - Transfer Medications Prescriptions: OxyCODONE Immed Rel [Roxicodone 5 MG] 5 mg PO Q6HR PRN 7 Days #28 tablet PRN Reason: Severe Pain ALPRAZolam [Xanax 1 MG Tablet] 1 mg PO QPM PRN 4 Days #4 tablet PRN Reason: Anxiety Docusate [Colace] 100 mg PO BID 4 Days #8 capsule Gabapentin [Neurontin] 300 mg PO QPM 4 Days #4 capsule Tizanidine HCl 2 mg PO QID PRN 7 Days #28 tablet PRN Reason: Muscle Pain Home Medications: Albuterol Sulfate [Ventolin Hfa] 1 puff IH Q4H PRN 05/29/18 [History] Aspirin Enteric Coated [Aspirin EC] 81 mg PO QAM 05/29/18 [History] Cholecalciferol (D-3) [Vitamin D] 2,000 unit PO QPM 05/29/18 [History] Clopidogrel [Plavix] 75 mg PO QAM 05/29/18 [History] Furosemide [Lasix] 40 mg PO QAM 05/29/18 [History] Lisinopril [Zestril] 20 mg PO QPM 05/29/18 [History] Metoprolol XL (24 HR) Succ [Toprol Xl] 75 mg PO QAM 05/29/18 [History] Rosuvastatin [Crestor] 40 mg PO QPM 05/29/18 [History] ALPRAZolam [Xanax 1 MG Tablet] 1 mg PO QPM PRN 4 Days #4 tablet 06/06/18 [Rx] Aspirin 81 mg PO DAILY tab.chew 06/06/18 [Rx] Docusate [Colace] 100 mg PO BID 4 Days #8 capsule 06/06/18 [Rx] Gabapentin [Neurontin] 300 mg PO QPM 4 Days #4 capsule 06/06/18 [Rx] OxyCODONE Immed Rel [Roxicodone 5 MG] 5 mg PO Q6HR PRN 7 Days #28 tablet [Rx] Tizanidine HCl 2 mg PO QID PRN 7 Days #28 tablet 06/06/18 [Rx] Allergies/Adverse Reactions: 3 Allergy/AdvReac Type Severity Reaction Status Date / Time No Known Allergies Allergy Verified 05/29/18 20:57 - Respiratory Orders None Smoking Cessation: Smoking cessation has been advised. For more information, call the [place] Tobacco Quit Line at 6-407-LODN-NOW. - Lab Orders Lab Orders: CBC (in 2-3 days after discharge), Other (include drug levels w/ frequency) (BMP in 2-3 days after discharge) - Advance Directives Code Status: Full Code - Mobility Orders Other (Per physical therapy) - Rehabiliation Orders Rehab Potential: Good Rehab Orders: Evaluation for Physical Therapy, Evaluation for Occupational Therapy - Diet Orders No Added Salt (JOSIANE), Cardiac CERTIFICATION: I certify that the transfer of the above named patient to an Extended Care Facility is necessary for the continuing treatment of the diagnosis listed. The above information is true and accurate reflection of patient's current condition. Confidential - Redisclosure prohibited without a patient's written consent.
[2018-06-06 16:04] VITALS: BP 145/75
== END 2018-06-06 18:07 | DRG 460 ==
LOC: 3BNU 17:35 → EMEROO 17:35 → 3BNU 21:18 → 3NENU 06-03 13:19 → ICNU 06-03 15:49 → 3NENU 06-03 23:50
PROVIDERS: ADMIT Internal Medicine; ATTEND Internal Medicine